=== PATIENT | male | born 1965 ===

== ENCOUNTER 2017-06-04 01:48 | Emergency (ER) | payer MEDICAID ==
[2017-06-04 01:49] VITALS: BMI 21.5
[2017-06-04 02:08] VITALS: O2SAT 97
--- NOTE | 2017-06-04 02:26 | C.PDOC ---
History Of Present Illness Patient presents to the ER with a complaint of intermittent chest pain after going to the mall at 13:00 today. Patient states the pain worsened tonight which prompted visit. Patient received 4 baby aspirin enroute with some relief but is still complaining of dull aching left shoulder discomfort. Denies nausea , vomiting, fever, or chills. Time Seen by Provider: 06/04/17 02:26 Chief Complaint (Nursing): Chest Pain History Per: Patient History/Exam Limitations: no limitations Onset/Duration Of Symptoms: Hrs, Intermittent Episodes Current Symptoms Are (Timing): Still Present Severity: Moderate Pain Scale Rating Of: 4 Quality: Dull, Aching Associated Symptoms: denies: Nausea, Dyspnea, Diaphoresis, Syncope Modifying Factors: None Exacerbating Factors: None Recent travel outside of the [place]: No Additional History Per: Family Past Medical History Reviewed: Historical Data, Nursing Documentation, Vital Signs Vital Signs: Last Vital Signs Temp 98.1 F 06/04/17 01:58 Pulse 97 H 06/04/17 01:58 Resp 20 06/04/17 01:58 BP 147/93 H 06/04/17 01:58 Pulse Ox 97 06/04/17 02:53 - Medical History PMH: Arthritis, CVA, Gastritis, HTN, Hypercholesterolemia, Hyperlipidemia, Migraine, TIA (x2), Chronic Pain Surgical History: Hernia Repair Family History: States: No Known Family Hx - Social History Hx Tobacco Use: No Hx Alcohol Use: No Hx Substance Use: No - Immunization History Hx Tetanus Toxoid Vaccination: Yes Hx Influenza Vaccination: Yes Hx Pneumococcal Vaccination: Yes Review Of Systems Constitutional: Negative for: Fever, Chills Eyes: Negative for: Vision Change ENT: Negative for: Throat Pain Cardiovascular: Positive for: Chest Pain Respiratory: Negative for: Shortness of Breath Gastrointestinal: Negative for: Nausea, Vomiting Genitourinary: Negative for: Dysuria Musculoskeletal: Positive for: Shoulder Pain Skin: Negative for: Rash Neurological: Negative for: Weakness Psych: Negative for: Anxiety Physical Exam - Physical Exam Appears: Non-toxic Skin: Warm, Dry Head: Normacephalic Eye(s): bilateral: Normal Inspection Oral Mucosa: Moist Neck: Supple Chest: Symmetrical, No Tenderness Cardiovascular: Rhythm Regular Respiratory: No Rales, No Rhonchi, No Wheezing Gastrointestinal/Abdominal: Soft, No Tenderness, Distention, Other (obese) Back: Normal Inspection Extremity: Pedal Edema (Pitting) Extremity: Bilateral: Atraumatic Pulses: Left Dorsalis Pedis: Normal, Right Dorsalis Pedis: Normal Neurological/Psych: Oriented x3 Gait: Steady ED Course And Treatment - Laboratory Results Result Diagrams: 06/04/17 03:22 18 03:31 ECG: Interpreted By Me, Viewed By Me ECG Rhythm: Sinus Rhythm (87), Nonspecific Changes O2 Sat by Pulse Oximetry: 97 Pulse Ox Interpretation: Normal - Radiology CXR: Interpreted by Me, Viewed By Me Progress Note: EKG, CXR, blood work, and urinalysis ordered. Disposition Discussed With Dr.: Toni Huang Comment: accetped the pt on his service and took over the care at 4AM Doctor Will See Patient In The: Hospital Counseled Patient/Family Regarding: Studies Performed, Diagnosis - Disposition Disposition: HOSPITALIZED Disposition Time: 02:26 Condition: FAIR Forms: [facility] (Vietnamese) - POA Present On Arrival: None - Clinical Impression Clinical Impression: Chest pain - Scribe Statement The provider has reviewed the documentation as recorded by the Scribe Zurdo Quiñonez All medical record entries made by the Scribe were at my direction and personally dictated by me. I have reviewed the chart and agree that the record accurately reflects my personal performance of the history, physical exam, medical decision making, and the department course for this patient. I have also personally directed, reviewed, and agree with the discharge instructions and disposition. Decision To Admit - Pt Status Changed To: Hospital Disposition Of: Inpatient - Admit Certification Admit to Inpatient:: After my assessment, the patient will require hospitalization for at least two midnights. This is because of the severity of symptoms shown, intensity of services needed, and/or the medical risk in this patient being treated as an outpatient. - InPatient: Physician Admission Certification: I certify that this patient requires 2 or more midnights of care for the following reason:: After my assessment, the patient will require hospitalization for at least two midnights. This is because of the severity of symptoms shown, intensity of services needed, and/or the medical risk in this patient being treated as an outpatient. - . Bed Request Type: Telemetry Admitting Physician: Tnoi Huang Patient Diagnosis: Chest pain
[2017-06-04] MEDS ORDERED: Morphine 4 MG/ML VIAL IV ONE (03:16)
[2017-06-04 03:25] LABS: BASO % 0.5 % (0.0-2.0); EOS # 0.2 K/uL (0.0-0.7); EOS % 2.6 % (0.0-4.0); HEMOGLOBIN 13.2 g/dL (12.0-18.0); LYMPH # 1.8 K/uL (1.0-4.3); LYMPH % 29.3 % (20.0-40.0); MEAN CELL VOLUME 89.4 fL (80.0-94.0); MEAN CORPUSCULAR HEMOGLOBIN 29.9 pg (27.0-31.0); MEAN CORPUSCULAR HGB CONC 33.4 g/dL (33.0-37.0); MEAN PLATELET VOLUME 9.6 fL (7.2-11.7); MONO # 0.5 K/uL (0.0-0.8); MONO % 8.7 % (0.0-10.0); NEUT # 3.6 K/uL (1.8-7.0); NEUT % 58.9 % (50.0-75.0); RBC 4.43 Mil/uL (4.40-5.90); RED CELL DISTRIBUTION WIDTH 14.8 % (11.5-14.5); WHITE BLOOD COUNT 6.1 K/uL (4.8-10.8)
[2017-06-04 03:39] LABS: PROTHROMBIN TIME 10.9 SECONDS (9.7-12.2)
[2017-06-04 03:41] LABS: ALB/GLOB RATIO 1.1 (1.0-2.1); ALBUMIN 3.5 g/dL (3.5-5.0); ALT/SGPT 35 U/L (21-72); AST/SGOT 29 U/L (17-59); BLOOD UREA NITROGEN 19 mg/dL (9-20); CALCIUM 8.7 mg/dl (8.6-10.4); GFR AFRICAN-AMERICAN > 60; GFR NON-AFRICAN AMERICAN > 60
[2017-06-04 03:53] LABS: B-TYPE NATRIURETIC PEPTIDE 70.6 pg/mL (0-900)
[2017-06-04 04:06] VITALS: PULSE 84; RESP 15; TEMP 97.8
[2017-06-04 04:17] VITALS: BP 127/79
[2017-06-04] MEDS ORDERED: Home Med 1 UNIT (Naproxen [Naprosyn] 500 MG) PO PRN (04:17)
--- NOTE | 2017-06-04 07:37 | RAD ---
Chest x-ray single frontal view History: Chest pain. Comparison: 02/28/2016 Findings: Elevated left hemidiaphragm with prominent gastric bubble underneath the left hemidiaphragm. Mild venous congestion. Patchy increased markings in the right infrahilar region which may represent mild atelectasis and or subtle infiltrate. Clinical correlation. Enlarged ectatic aorta. Cardiomegaly. Upper lobe granulomatous changes. Degenerative changes in the spine and shoulders. Impression: Elevated left hemidiaphragm with prominent gastric bubble underneath the left hemidiaphragm. Mild venous congestion. Patchy increased markings in the right infrahilar region which may represent mild atelectasis and or subtle infiltrate. Clinical correlation. Enlarged ectatic aorta. Cardiomegaly. Upper lobe granulomatous changes.
--- NOTE | 2017-06-06 23:05 | CARD ---
APPROVED REPORT EKG Measurement Heart [id number] <Conclusion> Normal sinus rhythm Normal ECG
== END 2017-06-04 04:26 | disposition left against medical advice (07) ==
LOC: C.ER 01:48
DX: R07.9 Chest pain, unspecified (principal); I10 Essential (primary) hypertension; E78.00 Pure hypercholesterolemia, unspecified; E78.5 Hyperlipidemia, unspecified
CPT/HCPCS: 71045; 80053; 83880; 84484; 85025; 85610; 85730; 93005; 96374; 99285; J2270

== ENCOUNTER 2018-05-18 11:58 | Inpatient (IN) | payer MEDICAID ==
[2018-05-18 12:10] VITALS: BMI 34.9
--- NOTE | 2018-05-18 13:22 | CP.PCM.PN ---
Subjective - Date & Time of Evaluation Date of Evaluation: 05/18/18 Time of Evaluation: 13:22 - Subjective Subjective: transfered from [facility] for STRETCH BOX TENDER shunt consult note on prior chart for OR tomorrow Objective - Vital Signs/Intake and Output Vital Signs (last 24 hours): Temp Pulse Resp BP Pulse Ox 98.4 F 79 18 121/78 97 05/18/18 12:12 05/18/18 12:12 05/18/18 12:12 05/18/18 12:12 05/18/18 12:12 - Medications Medications: Current Medications Acetaminophen (Tylenol 325mg Tab) 650 mg PO Q6 PRN PRN Reason: Pain, moderate (4-7) Rosuvastatin Calcium (Crestor) 5 mg PO HS BARRIE Topiramate (Topamax) 25 mg PO DAILY [facility]RIE
[2018-05-18] MEDS ORDERED: Apap-Butalbital-Caffeine 325-50-40mg Tab PO PRN (14:15)
[2018-05-18] MEDS: acetaZOLAMIDE 500 mg SR Cap PO SCH (17:21)
--- NOTE | 2018-05-19 01:12 | HP ---
HISTORY OF PRESENT ILLNESS: This is a 52-year-old male with history of hypertension, hypercholesterolemia, traumatic brain injury with hydrocephalus, status post HOUSE MOVER shunt, was transferred from [facility] to [facility] for revision of the HOUSE MOVER shunt due to severe symptomatic hydrocephalus with ataxic gait and dizziness. The patient was evaluated in [facility] by Dr. Ivory, Neurosurgery and he had an MRI done that showed severe hydrocephalus that did not change for few months. The patient had cardiac catheterization done by Dr. Polanco during the last year that did not show any coronary artery disease. No symptoms of chest pain, shortness of breath or any cardiopulmonary decompensation. REVIEW OF SYSTEMS: Other review of system is negative except for dizziness and disequilibrium. ALLERGIES: NO KNOWN ALLERGY. MEDICATIONS: Reviewed as per MAR and ordered. SOCIAL HISTORY: Denied history of smoking, EtOH or substance abuse. FAMILY HISTORY: Not contributory. PAST MEDICAL HISTORY: As above. PHYSICAL EXAMINATION: VITAL SIGNS: Blood pressure is 105/70, temperature 99.2, respiratory rate 20 and pulse 81. HEENT: Pupils equal, reactive to light. Normal-appearing mucosa of the conjunctivae, oropharynx and nasal membrane mucosa. NECK: Supple. No JVD. No carotid bruit. No lymph node. No thyromegaly. CHEST AND LUNGS: Bilateral symmetrical expansion. Good air exchange. No rales, no rhonchi. CARDIOVASCULAR SYSTEM: PMI not localized. S1, S2. No additional sounds. ABDOMEN: Normoactive bowel sounds. No tenderness. No organomegaly. No masses. EXTREMITIES: No cyanosis, no clubbing, no edema. WEEDER: Alert, awake, oriented x2, and the patient has ataxic gait. Motor and sensory are intact. ASSESSMENT: 1. Severe symptomatic hydrocephalus. 2. Status post traumatic brain injury. PLAN: Follow neurosurgical recommendations. The patient is cleared for neurosurgery by Cardiology, Dr. Polanco and the patient is scheduled for surgery on 05/19/2018. Edu Thompson MD
[2018-05-19] MEDS ORDERED: Bacitracin 500 Units/gm Oint Foilpak UD ONE (07:21)
[2018-05-19] MEDS ORDERED: cefTRIAXone 1 gm 0 GM/0 ML BAG IVPB ONE (07:22)
[2018-05-19] MEDS ORDERED: Lidocaine/Epinephrine 1% 1:100000 10 ML IJ ONE (07:22)
[2018-05-19] MEDS ORDERED: Absorbable Gelatin Sponge Size 100 ONE (07:22)
[2018-05-19] MEDS ORDERED: Thrombin Topical 20,000 Intl Units Spray Kit TOP ONE (07:23)
[2018-05-19] MEDS ORDERED: Bacitracin 50,000 UNIT in Sodium Chloride 0.9% Irrig 1,000 ML IR SCH (07:30)
--- NOTE | 2018-05-19 07:52 | CP.PCM.CON ---
History of Present Illness - History of Present Illness History of Present Illness: I was asked to see patient by Dr Thompson Patient seen 05/19/18 [id number] Patient is a 52 year old male with HTN who presents for NATURAL GAS ENGINEER shunt revision. The patient has previously been to [facility] for headache, and was transferred for surgery. Previous cardiac cath was negative for myocardial ischemia. Review of Systems - Constitutional Constitutional: absent: As Per HPI, Anorexia, Chills, Daytime Sleepiness, Excessive Sweating, Fatigue, Fever, Frequent Falls, Headache, Increased Appetite, Lethargy, Malaise, Night Sweats, Snoring, Sleep Apnea, Weight Gain, Weight Loss, Weakness, Other - EENT Eyes: absent: As Per HPI, Blind Spots, Blurred Vision, Change in Vision, Decreased Night Vision, Diplopia, Discharge, Dry Eye, Exophthalmos, Floaters, Irritation, Itchy Eyes, Loss of Peripheral Vision, Pain, Photophobia, Requires C orrective Lenses, Sees Flashes, Spots in Vision, Tunnel Vision, Other Visual Disturbances, Loss of Vision, Other Ears: absent: As Per HPI, Decreased Hearing, Ear Discharge, Ear Pain, Tinnitus, Abnormal Hearing, Disequilibrium, Dizziness, Other - Cardiovascular Cardiovascular: absent: As Per HPI, Acrocyanosis, Chest Pain, Chest Pain at Rest, Chest Pain with Activity, Claudication, Diaphoresis, Dyspnea, Dyspnea on Exertion, Edema, Irregular Heart Rhythm, Pain Radiating to Arm/Neck/Jaw, Leg Edema, Leg Ulcers, Lightheadedness, Orthopnea, Palpitations, Paroxysmal Nocturnal Dyspnea, Pedal Edema, Radiating Pain, Rapid Heart Rate, Slow Heart Rate, Syncope, Other - Respiratory Respiratory: absent: As Per HPI, Cough, Dyspnea, Hemoptysis, Dyspnea on Exertion, Wheezing, Snoring, Stridor, Pain on Inspiration, Chest Congestion, Excessive Mucous Production, Change in Mucous Color, Pain with Coughing, Other - Gastrointestinal Gastrointestinal: absent: As Per HPI, Abdominal Pain, Belching, Bloating, Change in Bowel Habits, Change in Stool Character, Coffee Ground Emesis, Constipation, Cramping, Diarrhea, Dyspepsia, Dysphagia, Early Satiety, Excessive Flatus, Fecal Incontinence, Heartburn, Hematemesis, Hematochezia, Loose Stools, Melena, Nausea, Odynophagia, Temesmus, Vomiting, Other - Genitourinary Genitourinary: absent: As Per HPI, Change in Urinary Stream, Difficulty Urinating, Dysuria, Flank Pain, Hematuria, Pyuria, Nocturia, Urinary Incontinence, Urinary Frequency, Urinary Hesitance, Urinary Urgency, Voiding Freq/Small Amts, Freq UTI, Hx Renal/Bladder Calculi, Hx /Renal Surgery, Bladder Distension, Other - Musculoskeletal Musculoskeletal: absent: As Per HPI, Abnormal Gait, Arthralgias, Atrophy, Back Pain, Deformity, Joint Swelling, Limited Range of Motion, Loss of Height, Muscle Cramps, Muscle Weakness, Myalgias, Neck Pain, Numbness, Radiating Pain into Limb, Stiffness, Tingling, Other - Integumentary Integumentary: absent: As Per HPI, Acne, Alopecia, Bleeding Lesions, Change in Hair, Change in Nails, Change in Pigmentation, Changing Lesions, Dry Skin, Erythema, Furuncle, Hirsutism, Lesions, New Lesions, Non-Healing Lesions, Photosensitivity, Pruritus, Rash, Skin Pain, Skin Ulcer, Sores, Striae, Swelling, Unusual Bruising, Wounds, Jaundice, Other - Neurological Neurological: Headaches - Psychiatric Psychiatric: absent: As Per HPI, Abnormal Sleep Pattern, Anhedonia, Anxiety, Auditory Hallucinations, Behavioral Changes, Change in Appetite, Change in Libido, Confusion, Depression, Difficulty Concentrating, Hallucinations, Homicidal Ideation, Hopelessness, Irritability, Memory Loss, Mood Swings, Panic Attacks, Paranoia, Suicidal Ideation, Visual Hallucinations, Tactile Hallucinations, Other - Endocrine Endocrine: absent: As Per HPI, Change in Body Appearance, Change in Libido, Cold Intolorance, Deepening of Voice, Excessive Sweating, Fatigue, Flushing, Heat Intolorance, Increase in Ring/Shoe/Hat Size, Palpitations, Polydipsia, Polyphagia, Polyuria, Other - Hematologic/Lymphatic Hematologic: absent: As Per HPI, Easy Bleeding, Easy Bruising, Lymphadenopathy, Other Past Patient History - Infectious Disease Hx of Infectious Diseases: None - Past Medical History & Family History Past Medical History?: Yes - Past Social History Smoking Status: Never Smoked - CARDIAC Hx Hypercholesterolemia: Yes Hx Hypertension: Yes - PULMONARY Other/Comment: Takes medicine for pain in the lung, does not know name of medication and why. - NEUROLOGICAL Hx Migraine: Yes Hx Transient Ischemic Attacks (TIA): Yes (x2) - HEENT Hx HEENT Problems: No - RENAL Hx Chronic Kidney Disease: No - ENDOCRINE/METABOLIC Hx Endocrine Disorders: No - HEMATOLOGICAL/ONCOLOGICAL Hx Human Immunodeficiency Virus (HIV): No - INTEGUMENTARY Hx Dermatological Problems: No - MUSCULOSKELETAL/RHEUMATOLOGICAL Hx Arthritis: Yes Hx Falls: Yes - GASTROINTESTINAL Hx Gastritis: Yes - GENITOURINARY/GYNECOLOGICAL Hx Genitourinary Disorders: No - PSYCHIATRIC Hx Psychophysiologic Disorder: No Hx Substance Use: No - SURGICAL HISTORY Hx Herniorrhaphy: Yes (Lt) Other/Comment: Ventricular shunt. Patient states he never had cataracts nor surgery for it. - ANESTHESIA Hx Anesthesia: Yes Hx Anesthesia Reactions: No Hx Malignant Hyperthermia: No Meds Home Medications: Home Medication List Medication Instructions Recorded Confirmed Type Acetaminophen [Tylenol 325mg tab] 650 mg PO Q6 PRN tab 05/21/18 Rx Cephalexin [Keflex] 250 mg PO Q8 #15 capsule 05/21/18 Rx Allergies/Adverse Reactions: Allergies Allergy/AdvReac Type Severity Reaction Status Date / Time No Known Allergies Allergy Verified 01/27/18 21:16 - Medications Medications: Current Medications Acetaminophen (Tylenol 325mg Tab) 650 mg PO Q6 PRN PRN Reason: Pain, moderate (4-7) Acetaminophen/Butalbital/Caffeine (Fioricet) 1 tab PO Q8 PRN PRN Reason: headache Last Admin: 05/19/18 02:26 Dose: 1 tab Acetazolamide (Diamox Sequels 500 Mg Sr Cap) 500 mg PO BID BARRIE Last Admin: 05/18/18 17:21 Dose: 500 mg Furosemide (Lasix) 40 mg PO DAILY [facility] Bacitracin 50,000 unit/ Sodium (Chloride) 1,000 mls @ 1,000 mls/hr IR .Q1H BARRIE; Protocol Stop: 05/19/18 08:29 Lisinopril (Zestril) 20 mg PO DAILY [facility] Meclizine HCl (Antivert) 25 mg PO Q8 PRN PRN Reason: Dizziness Rosuvastatin Calcium (Crestor) 5 mg PO HS BARRIE Last Admin: 05/18/18 21:16 Dose: 5 mg Topiramate (Topamax) 25 mg PO DAILY [facility] Physical Exam - Constitutional Appears: Non-toxic - Head Exam Head Exam: NORMAL INSPECTION - Eye Exam Eye Exam: Normal appearance - ENT Exam ENT Exam: Mucous Membranes Moist - Neck Exam Neck exam: Positive for: Full Rom - Respiratory Exam Respiratory Exam: NORMAL BREATHING PATTERN - Cardiovascular Exam Cardiovascular Exam: REGULAR RHYTHM - GI/Abdominal Exam GI & Abdominal Exam: Normal Bowel Sounds - Rectal Exam Rectal Exam: Deferred - Extremities Exam Extremities exam: Negative for: pedal edema - Back Exam Back exam: NORMAL INSPECTION - Neurological Exam Neurological exam: Alert, Oriented x3 - Psychiatric Exam Psychiatric exam: Normal Affect - Skin Skin Exam: Normal Color Results - Vital Signs Recent Vital Signs: Last Vital Signs Temp 97.2 F L 05/19/18 06:48 Pulse 79 05/19/18 07:05 Resp 20 05/19/18 06:48 BP 112/68 05/19/18 06:48 Pulse Ox 95 05/19/18 06:48 - Labs Result Diagrams: 05/20/18 04:42 05/20/18 04:42 - EKG Data EKG Interpreted by: Myself EKG shows normal: Sinus rhythm Assessment & Plan (1) Hypertension Assessment and Plan: blood pressure is well controlled Status: Acute (2) Obstructed NATURAL GAS ENGINEER shunt Assessment and Plan: no cardiovascular contraindication. the patient is medicallly optimized. Status: Acute
--- NOTE | 2018-05-19 07:52 | CP.PCM.CON ---
History of Present Illness - History of Present Illness History of Present Illness: Patient seen/examined. full consult to follow. known from office practice and previous [facility] admission Patient is medically optimized for the planned SEISMIC INTERPRETER shunt surgery. Past Patient History - Infectious Disease Hx of Infectious Diseases: None - Past Medical History & Family History Past Medical History?: Yes - Past Social History Smoking Status: Never Smoked - CARDIAC Hx Hypercholesterolemia: Yes Hx Hypertension: Yes - PULMONARY Other/Comment: Takes medicine for pain in the lung, does not know name of medication and why. - NEUROLOGICAL Hx Migraine: Yes Hx Transient Ischemic Attacks (TIA): Yes (x2) - HEENT Hx HEENT Problems: No - RENAL Hx Chronic Kidney Disease: No - ENDOCRINE/METABOLIC Hx Endocrine Disorders: No - HEMATOLOGICAL/ONCOLOGICAL Hx Human Immunodeficiency Virus (HIV): No - INTEGUMENTARY Hx Dermatological Problems: No - MUSCULOSKELETAL/RHEUMATOLOGICAL Hx Arthritis: Yes Hx Falls: Yes - GASTROINTESTINAL Hx Gastritis: Yes - GENITOURINARY/GYNECOLOGICAL Hx Genitourinary Disorders: No - PSYCHIATRIC Hx Psychophysiologic Disorder: No Hx Substance Use: No - SURGICAL HISTORY Hx Herniorrhaphy: Yes (Lt) Other/Comment: Ventricular shunt. Patient states he never had cataracts nor surgery for it. - ANESTHESIA Hx Anesthesia: Yes Hx Anesthesia Reactions: No Hx Malignant Hyperthermia: No Meds Allergies/Adverse Reactions: Allergies Allergy/AdvReac Type Severity Reaction Status Date / Time No Known Allergies Allergy Verified 01/27/18 21:16 - Medications Medications: Current Medications Acetaminophen (Tylenol 325mg Tab) 650 mg PO Q6 PRN PRN Reason: Pain, moderate (4-7) Acetaminophen/Butalbital/Caffeine (Fioricet) 1 tab PO Q8 PRN PRN Reason: headache Last Admin: 05/19/18 02:26 Dose: 1 tab Acetazolamide (Diamox Sequels 500 Mg Sr Cap) 500 mg PO BID [facility]RIE Last Admin: 05/18/18 17:21 Dose: 500 mg Furosemide (Lasix) 40 mg PO DAILY [facility] Bacitracin 50,000 unit/ Sodium (Chloride) 1,000 mls @ 1,000 mls/hr IR .Q1H [facility]RIE; Protocol Stop: 05/19/18 08:29 Lisinopril (Zestril) 20 mg PO DAILY [facility] Meclizine HCl (Antivert) 25 mg PO Q8 PRN PRN Reason: Dizziness Rosuvastatin Calcium (Crestor) 5 mg PO HS BARRIE Last Admin: 05/18/18 21:16 Dose: 5 mg Topiramate (Topamax) 25 mg PO DAILY [facility] Results - Vital Signs Recent Vital Signs: Last Vital Signs Temp 97.2 F L 05/19/18 06:48 Pulse 79 05/19/18 07:05 Resp 20 05/19/18 06:48 BP 112/68 05/19/18 06:48 Pulse Ox 95 05/19/18 06:48
[2018-05-19] MEDS ORDERED: Propofol 10 mg/ml Inj (20 ML) ONE (07:54)
[2018-05-19] MEDS ORDERED: Midazolam 2 MG/2 ML VIAL ONE (07:54)
[2018-05-19] MEDS ORDERED: Lidocaine Hydrochloride 5 ML INJ ONE (08:02)
[2018-05-19] MEDS ORDERED: ceFAZolin 1 gm in NS 2 GM/200 ML BAG IVPB ONE (08:38)
[2018-05-19] MEDS ORDERED: Neostigmine 1:1000 (1 mg/ml) Inj ONE (08:50)
[2018-05-19] MEDS ORDERED: Atropine 0.4 mg/ml Inj (1 mL) ONE (08:51)
[2018-05-19] MEDS ORDERED: Potassium Ch 20mEq in D5-1/2NS 1,000 ML IV SCH (09:00)
--- NOTE | 2018-05-19 09:11 | CP.PCM.CON ---
<Markus Licea - Last Filed: 05/19/18 12:27> History of Present Illness - History of Present Illness History of Present Illness: Markus Licea DO, PGY-2: ICU Consult Note for Dr. Keira Le 52 year old with a past medical history of hypertension, migraines, dyslipidemia, and hydrocephalus with SHIFT FOREMAN shunt placement in 2002 who presented to [facility] for revision of SHIFT FOREMAN shunt after the patient was noted to have an ataxic gait and dizziness. Dr. Ivory performed the SHIFT FOREMAN shunt revision and the patient is to be monitored in the ICU with neurochecks q1h. At the time of my evaluation the patient is resting in the ICU in bed 16 and reports having a right sided headache, 8/10 in intensity, but no nausea, vomiting, or neurologic deficits. He denies fever, chills, unilateral weakness numbness, tingling, or visual changes. Otherwise 12 point ROS is negative. PMH: hydrocephalus, hypertension, dyslipidemia PSH: left leg surgery at the age of 6, SHIFT FOREMAN shunt placement s/p revision Allergies: denies Social: Denies alcohol, tobacco, or illicit drug use PMD: Dr. Thompson Review of Systems - Review of Systems All systems: reviewed and no additional remarkable complaints except (except as per HPI) Past Patient History - Infectious Disease Hx of Infectious Diseases: None - Past Medical History & Family History Past Medical History?: Yes - Past Social History Smoking Status: Never Smoked - CARDIAC Hx Hypercholesterolemia: Yes Hx Hypertension: Yes - PULMONARY Other/Comment: Takes medicine for pain in the lung, does not know name of medication and why. - NEUROLOGICAL Hx Migraine: Yes Hx Transient Ischemic Attacks (TIA): Yes (x2) - HEENT Hx HEENT Problems: No - RENAL Hx Chronic Kidney Disease: No - ENDOCRINE/METABOLIC Hx Endocrine Disorders: No - HEMATOLOGICAL/ONCOLOGICAL Hx Human Immunodeficiency Virus (HIV): No - INTEGUMENTARY Hx Dermatological Problems: No - MUSCULOSKELETAL/RHEUMATOLOGICAL Hx Arthritis: Yes Hx Falls: Yes - GASTROINTESTINAL Hx Gastritis: Yes - GENITOURINARY/GYNECOLOGICAL Hx Genitourinary Disorders: No - PSYCHIATRIC Hx Psychophysiologic Disorder: No Hx Substance Use: No - SURGICAL HISTORY Hx Herniorrhaphy: Yes (Lt) Other/Comment: Ventricular shunt. Patient states he never had cataracts nor surgery for it. - ANESTHESIA Hx Anesthesia: Yes Hx Anesthesia Reactions: No Hx Malignant Hyperthermia: No Meds Allergies/Adverse Reactions: Allergies Allergy/AdvReac Type Severity Reaction Status Date / Time No Known Allergies Allergy Verified 01/27/18 21:16 - Medications Medications: Current Medications Acetaminophen (Tylenol 325mg Tab) 650 mg PO Q6 PRN PRN Reason: Pain, moderate (4-7) Acetaminophen/Butalbital/Caffeine (Fioricet) 1 tab PO Q8 PRN PRN Reason: headache Last Admin: 05/19/18 02:26 Dose: 1 tab Acetazolamide (Diamox Sequels 500 Mg Sr Cap) 500 mg PO BID [facility] Last Admin: 05/18/18 17:21 Dose: 500 mg Furosemide (Lasix) 40 mg PO DAILY [facility] Potassium Chloride/Dextrose/Sod Cl (Potassium Chl 20 Meq In D5-1/2ns) 1,000 mls @ 80 mls/hr IV .[id number] [facility] Lisinopril (Zestril) 20 mg PO DAILY [facility] Meclizine HCl (Antivert) 25 mg PO Q8 PRN PRN Reason: Dizziness Oxycodone/Acetaminophen (Percocet 5/325 Mg Tab) 1 tab PO Q4H PRN PRN Reason: Pain, Mild (1-3) Stop: 05/22/18 08:56 Rosuvastatin Calcium (Crestor) 5 mg PO HS [facility] Last Admin: 05/18/18 21:16 Dose: 5 mg Topiramate (Topamax) 25 mg PO DAILY [facility] Physical Exam - Constitutional Appears: Well, Non-toxic, No Acute Distress - Head Exam Additional comments: surgical dressing placed over the left posterior calvarium - Eye Exam Eye Exam: EOMI, Normal appearance - ENT Exam ENT Exam: Mucous Membranes Moist - Neck Exam Neck exam: Positive for: Normal Inspection - Respiratory Exam Respiratory Exam: Clear to Auscultation Bilateral, NORMAL BREATHING PATTERN. absent: Accessory Muscle Use - Cardiovascular Exam Cardiovascular Exam: RRR, +S1, +S2 - GI/Abdominal Exam GI & Abdominal Exam: Normal Bowel Sounds, Soft - Extremities Exam Extremities exam: Positive for: normal inspection. Negative for: calf tenderness - Back Exam Back exam: NORMAL INSPECTION. absent: CVA tenderness (L), CVA tenderness (R) - Neurological Exam Neurological exam: Alert, CN II-XII Intact, Oriented x3 - Psychiatric Exam Psychiatric exam: Normal Affect, Normal Mood - Skin Skin Exam: Dry, Intact, Normal Color, Warm Results - Vital Signs Recent Vital Signs: Last Vital Signs Temp 97.6 F 05/19/18 07:30 Pulse 92 H 05/19/18 07:30 Resp 20 05/19/18 07:30 BP 113/71 05/19/18 07:30 Pulse Ox 94 L 05/19/18 07:30 Assessment & Plan - Assessment and Plan (Free Text) Assessment: 52 year old with a past medical history of hypertension, migraines, dyslipidemia, and hydrocephalus with SHIFT FOREMAN shunt placement in 2002 who presented to [facility] for revision of SHIFT FOREMAN shunt after the patient was noted to have an ataxic gait and dizziness. The patient is s/p SHIFT FOREMAN shunt revision and the patient is to be monitored in the ICU with neurochecks q1h. We will continue his home medications as is. Percocet 5/325 q4h PRN for pain. Topamax for migraine prevention, Fiorecet as needed. Diamox for hydrocephalus. Rosuvastatin for his dyslipidemia. The patient will be OOB as tolerated. We will monitor him closely in the ICU. Case was reviewed and discussed with attending physician, Dr. Espinosa/Dr. Keira Le <Keira Le M - Last Filed: 05/19/18 17:23> Meds - Medications Medications: Current Medications Acetaminophen (Tylenol 325mg Tab) 650 mg PO Q6 PRN PRN Reason: Pain, moderate (4-7) Acetaminophen/Butalbital/Caffeine (Fioricet) 1 tab PO Q8 PRN PRN Reason: headache Last Admin: 05/19/18 02:26 Dose: 1 tab Lisinopril (Zestril) 20 mg PO DAILY [facility] Last Admin: 05/19/18 11:30 Dose: 20 mg Oxycodone/Acetaminophen (Percocet 5/325 Mg Tab) 1 tab PO Q4H PRN PRN Reason: Pain, Mild (1-3) Stop: 05/22/18 08:56 Last Admin: 05/19/18 15:57 Dose: 1 tab Rosuvastatin Calcium (Crestor) 5 mg PO HS [facility] Last Admin: 05/18/18 21:16 Dose: 5 mg Topiramate (Topamax) 25 mg PO DAILY [facility] Last Admin: 05/19/18 11:27 Dose: 25 mg Results - Vital Signs Recent Vital Signs: Last Vital Signs Temp 98.7 F 05/19/18 16:00 Pulse 81 05/19/18 16:00 Resp 14 05/19/18 16:00 BP 136/71 05/19/18 15:52 Pulse Ox 97 05/19/18 16:00 - Labs Result Diagrams: 05/19/18 14:08 05/19/18 14:08 Labs: Laboratory Results - last 24 hr 05/19/18 05/19/18 05/19/18 12:12 14:08 14:08 WBC 15.0 H D RBC 5.14 Hgb 15.0 Hct 46.8 MCV 91.1 MCH 29.3 MCHC 32.1 L RDW 13.8 Plt Count 173 MPV 9.1 Neut % (Auto) 86.3 H Lymph % (Auto) 5.6 L [place] % (Auto) 7.7 Eos % (Auto) 0.1 Baso % (Auto) 0.3 Neut # (Auto) 12.9 H Lymph # (Auto) 0.8 L [place] # (Auto) 1.2 H Eos # (Auto) 0.0 Baso # (Auto) 0.0 Neutrophils % (Manual) 89 H Lymphocytes % (Manual) 3 L Monocytes % (Manual) 8 Platelet Estimate Normal RBC Morphology Normal Sodium 132 Potassium 4.6 Chloride 101 Carbon Dioxide 23 Anion Gap 13 BUN 25 H Creatinine 1.0 Est GFR ( Amer) > 60 Est GFR (Non-Af Amer) > 60 Random Glucose 124 H D Lactic Acid Calcium 8.3 L Phosphorus 3.6 Magnesium 2.1 Total Bilirubin 0.4 AST 29 ALT 26 Alkaline Phosphatase 84 NT-Pro-B Natriuret Pep 22.6 Total Protein 7.8 Albumin 4.3 Globulin 3.5 Albumin/Globulin Ratio 1.2 Fluid Type Spinal fluid CSF Volume 1 CSF Appearance Clear/colorless CSF WBC 0.0 CSF RBC 9.0 H CSF Total Cell Counted TEST NOT PERFORMED CSF Monos/Macrophages 0 CSF Comment TEST NOT PERFORMED 05/19/18 14:10 WBC RBC Hgb Hct MCV MCH MCHC RDW Plt Count MPV Neut % (Auto) Lymph % (Auto) [place] % (Auto) Eos % (Auto) Baso % (Auto) Neut # (Auto) Lymph # (Auto) [place] # (Auto) Eos # (Auto) Baso # (Auto) Neutrophils % (Manual) Lymphocytes % (Manual) Monocytes % (Manual) Platelet Estimate RBC Morphology Sodium Potassium Chloride Carbon Dioxide Anion Gap BUN Creatinine Est GFR ( Amer) Est GFR (Non-Af Amer) Random Glucose Lactic Acid 1.3 Calcium Phosphorus Magnesium Total Bilirubin AST ALT Alkaline Phosphatase NT-Pro-B Natriuret Pep Total Protein Albumin Globulin Albumin/Globulin Ratio Fluid Type CSF Volume CSF Appearance CSF WBC CSF RBC CSF Total Cell Counted CSF Monos/Macrophages CSF Comment Assessment & Plan - Assessment and Plan (Free Text) Plan: Patient seen and examined at bedside. Patient has no c/o dizziness, denies any blurry vision -vitals remain stable -d/c IVF and lasix -continue topramax -wound site clean, intact -activity as tolerated -continue to monitor - Date & Time Date: 05/19/18 Time: 17:23
[2018-05-19] MEDS ORDERED: Lactated Ringer's 1,000 ML IV SCH (09:30)
[2018-05-19] MEDS ORDERED: HYDROmorphone 0.5 mg/0.5 ml ISec IVP PRN (09:55)
[2018-05-19] MEDS: Oxycodone/Acetaminophen 5/325 mg Tab PO PRN ×3 (11:25→21:45)
[2018-05-19 12:15] LABS: FLUID TYPE SPINAL FLUID
[2018-05-19] MEDS: acetaZOLAMIDE 500 mg SR Cap PO SCH ×2 (12:19→12:20)
[2018-05-19 12:55] LABS: CSF APPEARANCE CLEAR/COLORLESS (CLEAR); CSF MONO/MACROPHAGE 0 % (0-0); CSF VOLUME 1 mL (0-1)
[2018-05-19 14:16] LABS: BASO % 0.3 % (0.0-2.0); EOS % 0.1 % (0.0-4.0); LYMPH # 0.8 K/uL (1.0-4.3); LYMPH % 5.6 % (20.0-40.0); MEAN CELL VOLUME 91.1 fL (80.0-94.0); MEAN CORPUSCULAR HEMOGLOBIN 29.3 pg (27.0-31.0); MEAN CORPUSCULAR HGB CONC 32.1 g/dL (33.0-37.0); MEAN PLATELET VOLUME 9.1 fL (7.2-11.7); MONO # 1.2 K/uL (0.0-0.8); MONO % 7.7 % (0.0-10.0); NEUT # 12.9 K/uL (1.8-7.0); NEUT % 86.3 % (50.0-75.0); NRBC % 0.1 % (0.0-2.0); PLATELET COUNT 173 K/uL (130-400); RBC 5.14 Mil/uL (4.40-5.90); RED CELL DISTRIBUTION WIDTH 13.8 % (11.5-14.5)
[2018-05-19 14:26] LABS: ALB/GLOB RATIO 1.2 (1.0-2.1); ALBUMIN 4.3 g/dL (3.5-5.0); BLOOD UREA NITROGEN 25 mg/dL (9-20); CALCIUM 8.3 mg/dl (8.6-10.4); GFR NON-AFRICAN AMERICAN > 60
[2018-05-19 14:34] LABS: B-TYPE NATRIURETIC PEPTIDE 22.6 pg/mL (0-900)
--- NOTE | 2018-05-19 14:36 | RAD ---
Date of service: 05/19/2018 HISTORY: Evaluate lungs COMPARISON: Comparison made with chest radiograph 06/04/2018 and CTA of the chest 11/22/14 FINDINGS: LUNGS: Poor inspiration with low lung volumes, crowded bronchovascular markings and bibasilar atelectasis. There is more significant elevation left hemidiaphragm likely due to eventration unchanged from prior study. PLEURA: No significant pleural effusion identified, no pneumothorax apparent. CARDIOVASCULAR: No aortic atherosclerotic calcification present. Heart size is difficult to assess due to elevation left hemidiaphragm as well as poor inspiration OSSEOUS STRUCTURES: No significant abnormalities. VISUALIZED UPPER ABDOMEN: Tubing is normal. OTHER FINDINGS: Tubing is seen overlying the right aspect of the neck and right hemithorax extending into the over the right abdomen possibly representing a JOB SETTER shunt tube. IMPRESSION: Poor inspiration with low lung volumes, crowded bronchovascular markings and bibasilar atelectasis. There is more significant elevation left hemidiaphragm likely due to eventration unchanged from prior study.
[2018-05-19 14:45] LABS: ALT/SGPT 26 U/L (21-72); AST/SGOT 29 U/L (17-59)
[2018-05-19 15:01] LABS: LYMPHOCYTE 3 % (20-40); MONOCYTE 8 % (0-10); NEUTROPHIL 89 % (50-75); TOTAL CELLS COUNTED 100
[2018-05-19 15:02] LABS: PLATELET ESTIMATE NORMAL (NORMAL)
--- NOTE | 2018-05-19 18:01 | CP.PCM.CON ---
History of Present Illness - History of Present Illness History of Present Illness: 52 year old male with history of HTN, hypercholesterolemia CVA, LUDLOW MACHINE OPERATOR shunt who has dizziness. Symptoms have been rapidly progressive and associated with headache. He presented to [facility] with an episode of chest pain. underwent shunt revision today ID consulted for post op fever cultures pending Review of Systems - Constitutional Constitutional: absent: As Per HPI, Anorexia, Chills, Daytime Sleepiness, Excessive Sweating, Fatigue, Fever, Frequent Falls, Headache, Increased Appetite, Lethargy, Malaise, Night Sweats, Snoring, Sleep Apnea, Weight Gain, Weight Loss, Weakness, Other - EENT Eyes: absent: As Per HPI, Blind Spots, Blurred Vision, Change in Vision, Decreased Night Vision, Diplopia, Discharge, Dry Eye, Exophthalmos, Floaters, Irritation, Itchy Eyes, Loss of Peripheral Vision, Pain, Photophobia, Requires Corrective Lenses, Sees Flashes, Spots in Vision, Tunnel Vision, Other Visual Disturbances, Loss of Vision, Other Nose/Mouth/Throat: absent: As Per HPI, Epistaxis, Nasal Congestion, Nasal Discharge, Nasal Obstruction, Nasal Trauma, Nose Pain, Post Nasal Drip, Sinus Pain, Sinus Pressure, Bleeding Gums, Change in Voice, Dental Pain, Dry Mouth, Dysphagia, Halitosis, Hoarsness, Lip Swelling, Mouth Lesions, Mouth Pain, Odynophagia, Sore Throat, Throat Swelling, Tongue Swelling, Facial Pain, Neck Pain, Neck Mass, Other - Cardiovascular Cardiovascular: absent: As Per HPI, Acrocyanosis, Chest Pain, Chest Pain at Rest, Chest Pain with Activity, Claudication, Diaphoresis, Dyspnea, Dyspnea on Exertion, Edema, Irregular Heart Rhythm, Pain Radiating to Arm/Neck/Jaw, Leg Edema, Leg Ulcers, Lightheadedness, Orthopnea, Palpitations, Paroxysmal Nocturnal Dyspnea, Pedal Edema, Radiating Pain, Rapid Heart Rate, Slow Heart Rate, Syncope, Other - Respiratory Respiratory: absent: As Per HPI, Cough, Dyspnea, Hemoptysis, Dyspnea on Exertion, Wheezing, Snoring, Stridor, Pain on Inspiration, Chest Congestion, Excessive Mucous Production, Change in Mucous Color, Pain with Coughing, Other - Gastrointestinal Gastrointestinal: absent: As Per HPI, Abdominal Pain, Belching, Bloating, Change in Bowel Habits, Change in Stool Character, Coffee Ground Emesis, Constipation, Cramping, Diarrhea, Dyspepsia, Dysphagia, Early Satiety, Excessive Flatus, Fecal Incontinence, Heartburn, Hematemesis, Hematochezia, Loose Stools, Melena, Nausea, Odynophagia, Temesmus, Vomiting, Other - Genitourinary Genitourinary: absent: As Per HPI, Change in Urinary Stream, Difficulty Urinating, Dysuria, Flank Pain, Hematuria, Pyuria, Nocturia, Urinary Incontinence, Urinary Frequency, Urinary Hesitance, Urinary Urgency, Voiding Freq/Small Amts, Freq UTI, Hx Renal/Bladder Calculi, Hx /Renal Surgery, Bladder Distension, Other - Musculoskeletal Musculoskeletal: absent: As Per HPI, Abnormal Gait, Arthralgias, Atrophy, Back Pain, Deformity, Joint Swelling, Limited Range of Motion, Loss of Height, Muscle Cramps, Muscle Weakness, Myalgias, Neck Pain, Numbness, Radiating Pain into Limb, Stiffness, Tingling, Other - Integumentary Integumentary: absent: As Per HPI, Acne, Alopecia, Bleeding Lesions, Change in Hair, Change in Nails, Change in Pigmentation, Changing Lesions, Dry Skin, Erythema, Furuncle, Hirsutism, Lesions, New Lesions, Non-Healing Lesions, Photosensitivity, Pruritus, Rash, Skin Pain, Skin Ulcer, Sores, Striae, Swelling, Unusual Bruising, Wounds, Jaundice, Other - Neurological Neurological: Headaches, Lack of Coordination - Psychiatric Psychiatric: absent: As Per HPI, Abnormal Sleep Pattern, Anhedonia, Anxiety, Auditory Hallucinations, Behavioral Changes, Change in Appetite, Change in Libido, Confusion, Depression, Difficulty Concentrating, Hallucinations, Homicidal Ideation, Hopelessness, Irritability, Memory Loss, Mood Swings, Panic Attacks, Paranoia, Suicidal Ideation, Visual Hallucinations, Tactile Hallucinations, Other - Endocrine Endocrine: absent: As Per HPI, Change in Body Appearance, Change in Libido, Cold Intolorance, Deepening of Voice, Excessive Sweating, Fatigue, Flushing, Heat Intolorance, Increase in Ring/Shoe/Hat Size, Palpitations, Polydipsia, Polyphagia, Polyuria, Other - Hematologic/Lymphatic Hematologic: absent: As Per HPI, Easy Bleeding, Easy Bruising, Lymphadenopathy, Other Past Patient History - Infectious Disease Hx of Infectious Diseases: None - Past Medical History & Family History Past Medical History?: Yes - Past Social History Smoking Status: Never Smoked - CARDIAC Hx Hypercholesterolemia: Yes Hx Hypertension: Yes - PULMONARY Other/Comment: Takes medicine for pain in the lung, does not know name of medication and why. - NEUROLOGICAL Hx Migraine: Yes Hx Transient Ischemic Attacks (TIA): Yes (x2) - HEENT Hx HEENT Problems: No - RENAL Hx Chronic Kidney Disease: No - ENDOCRINE/METABOLIC Hx Endocrine Disorders: No - HEMATOLOGICAL/ONCOLOGICAL Hx Human Immunodeficiency Virus (HIV): No - INTEGUMENTARY Hx Dermatological Problems: No - MUSCULOSKELETAL/RHEUMATOLOGICAL Hx Arthritis: Yes Hx Falls: Yes - GASTROINTESTINAL Hx Gastritis: Yes - GENITOURINARY/GYNECOLOGICAL Hx Genitourinary Disorders: No - PSYCHIATRIC Hx Psychophysiologic Disorder: No Hx Substance Use: No - SURGICAL HISTORY Hx Herniorrhaphy: Yes (Lt) Other/Comment: Ventricular shunt. Patient states he never had cataracts nor surgery for it. - ANESTHESIA Hx Anesthesia: Yes Hx Anesthesia Reactions: No Hx Malignant Hyperthermia: No Meds Allergies/Adverse Reactions: Allergies Allergy/AdvReac Type Severity Reaction Status Date / Time No Known Allergies Allergy Verified 01/27/18 21:16 - Medications Medications: Current Medications Acetaminophen (Tylenol 325mg Tab) 650 mg PO Q6 PRN PRN Reason: Pain, moderate (4-7) Acetaminophen/Butalbital/Caffeine (Fioricet) 1 tab PO Q8 PRN PRN Reason: headache Last Admin: 05/19/18 02:26 Dose: 1 tab Lisinopril (Zestril) 20 mg PO DAILY [facility] Last Admin: 05/19/18 11:30 Dose: 20 mg Oxycodone/Acetaminophen (Percocet 5/325 Mg Tab) 1 tab PO Q4H PRN PRN Reason: Pain, Mild (1-3) Stop: 05/22/18 08:56 Last Admin: 05/19/18 15:57 Dose: 1 tab Rosuvastatin Calcium (Crestor) 5 mg PO HS [facility] Last Admin: 05/18/18 21:16 Dose: 5 mg Topiramate (Topamax) 25 mg PO DAILY [facility] Last Admin: 05/19/18 11:27 Dose: 25 mg Physical Exam - Constitutional Appears: Non-toxic, No Acute Distress, Chronically Ill - Head Exam Head Exam: absent: NORMAL INSPECTION Additional comments: dressinng over right parietal region c/d/i - Eye Exam Eye Exam: EOMI, PERRL. absent: Scleral icterus - ENT Exam ENT Exam: Mucous Membranes Dry, Normal Oropharynx - Neck Exam Neck exam: Negative for: Lymphadenopathy - Respiratory Exam Respiratory Exam: Decreased Breath Sounds, Rhonchi - Cardiovascular Exam Cardiovascular Exam: REGULAR RHYTHM - GI/Abdominal Exam GI & Abdominal Exam: Diminished Bowel Sounds, Guarding, Soft, Tenderness. absent: Rebound, Rigid - Rectal Exam Rectal Exam: Deferred - Exam Exam: NORMAL INSPECTION - Extremities Exam Extremities exam: Negative for: pedal edema - Back Exam Back exam: absent: CVA tenderness (L), CVA tenderness (R) - Neurological Exam Neurological exam: Alert, CN II-XII Intact, Oriented x3, Reflexes Normal - Psychiatric Exam Psychiatric exam: Depressed - Skin Skin Exam: Dry Results - Vital Signs Recent Vital Signs: Last Vital Signs Temp 98.7 F 05/19/18 16:00 Pulse 78 05/19/18 17:00 Resp 13 05/19/18 17:00 BP 113/67 05/19/18 16:52 Pulse Ox 95 05/19/18 17:00 - Labs Result Diagrams: 05/19/18 14:08 05/19/18 14:08 Labs: Laboratory Results - last 24 hr 05/19/18 05/19/18 05/19/18 12:12 14:08 14:08 WBC 15.0 H D RBC 5.14 Hgb 15.0 Hct 46.8 MCV 91.1 MCH 29.3 MCHC 32.1 L RDW 13.8 Plt Count 173 MPV 9.1 Neut % (Auto) 86.3 H Lymph % (Auto) 5.6 L [place] % (Auto) 7.7 Eos % (Auto) 0.1 Baso % (Auto) 0.3 Neut # (Auto) 12.9 H Lymph # (Auto) 0.8 L [place] # (Auto) 1.2 H Eos # (Auto) 0.0 Baso # (Auto) 0.0 Neutrophils % (Manual) 89 H Lymphocytes % (Manual) 3 L Monocytes % (Manual) 8 Platelet Estimate Normal RBC Morphology Normal Sodium 132 Potassium 4.6 Chloride 101 Carbon Dioxide 23 Anion Gap 13 BUN 25 H Creatinine 1.0 Est GFR ( Amer) > 60 Est GFR (Non-Af Amer) > 60 Random Glucose 124 H D Lactic Acid Calcium 8.3 L Phosphorus 3.6 Magnesium 2.1 Total Bilirubin 0.4 AST 29 ALT 26 Alkaline Phosphatase 84 NT-Pro-B Natriuret Pep 22.6 Total Protein 7.8 Albumin 4.3 Globulin 3.5 Albumin/Globulin Ratio 1.2 Fluid Type Spinal fluid CSF Volume 1 CSF Appearance Clear/colorless CSF WBC 0.0 CSF RBC 9.0 H CSF Total Cell Counted TEST NOT PERFORMED CSF Monos/Macrophages 0 CSF Comment TEST NOT PERFORMED 05/19/18 14:10 WBC RBC Hgb Hct MCV MCH MCHC RDW Plt Count MPV Neut % (Auto) Lymph % (Auto) [place] % (Auto) Eos % (Auto) Baso % (Auto) Neut # (Auto) Lymph # (Auto) [place] # (Auto) Eos # (Auto) Baso # (Auto) Neutrophils % (Manual) Lymphocytes % (Manual) Monocytes % (Manual) Platelet Estimate RBC Morphology Sodium Potassium Chloride Carbon Dioxide Anion Gap BUN Creatinine Est GFR ( Amer) Est GFR (Non-Af Amer) Random Glucose Lactic Acid 1.3 Calcium Phosphorus Magnesium Total Bilirubin AST ALT Alkaline Phosphatase NT-Pro-B Natriuret Pep Total Protein Albumin Globulin Albumin/Globulin Ratio Fluid Type CSF Volume CSF Appearance CSF WBC CSF RBC CSF Total Cell Counted CSF Monos/Macrophages CSF Comment Assessment & Plan - Assessment and Plan (Free Text) Assessment: Post op fever s/p LUDLOW MACHINE OPERATOR shunt revision septic work up done, IV antibiotics ordered empirically follow up cxr in am cultures sent incentive spirometry ordered
[2018-05-19] MEDS ORDERED: Cefepime 1 GM in Sodium Chloride 0.9% 50 ML IVPB ONE (18:06)
--- NOTE | 2018-05-19 18:22 | OP ---
PROCEDURE DATE: 05/19/2018 PREOPERATIVE DIAGNOSIS: Need for ventriculoperitoneal shunt revision. PROCEDURE CARRIED OUT: Ventriculoperitoneal shunt. SURGEON: Sander Ivory MD. PERITONEAL SURGEON: Yevgeniy Gunn Jr., MD. ANESTHESIA: General. ANESTHESIA ADMINISTERED BY: Dr. Benitez. INDICATION: A 52-year-old man, malfunctioning OBSERVER ELECTRICAL PROSPECTING shunt, needs replacement. OPERATIVE FINDINGS: Dr. Ivory will dictate the majority of the operative note. My role was to create a pocket in the low portion of the ribcage. At this point, we were able to make a dissection into the peritoneal cavity, placed a Purse String suture here and delivered the deployed OBSERVER ELECTR[employer]OSPECTING shunt tubing into the peritoneal cavity. After this had been deployed and had good flow, we then closed the wound around this. Closed the skin with subcuticular, closed with Steri-Strips. ESTIMATED BLOOD LOSS: Less than 10 mL. OPERATION CARRIED OUT: Revision of OBSERVER ELECTRICAL PROSPECTING shunt. Yevgeniy Gunn Jr., MD
[2018-05-19] MEDS ORDERED: Cefepime 1 GM in Sodium Chloride 0.9% 50 ML IVPB SCH (18:30)
--- NOTE | 2018-05-19 20:04 | PN ---
DATE: 05/19/2018 SUBJECTIVE: The patient is seen postoperatively in intensive care unit. He is not in any cardiopulmonary distress. The patient is having pain at the site of surgery. PHYSICAL EXAMINATION: VITAL SIGNS: Blood pressure 136/71, temperature 98.7, respiratory rate 14 and pulse 81. HEENT: There is surgical dressing of the head. NECK: Supple. No JVD. No carotid bruit. No lymph node. No thyromegaly. CHEST AND LUNGS: Bilateral symmetrical expansion. Good air exchange. No rales, no rhonchi. CARDIOVASCULAR SYSTEM: PMI not localized. S1, S2. No additional sounds. ABDOMEN: Normoactive bowel sounds. No tenderness, no organomegaly, no masses. EXTREMITIES: No cyanosis, no clubbing, no edema. SAMPLER FIRST: Alert, awake, oriented x2. No neurological deficits could be appreciated. ASSESSMENT: 1. Status post ventriculoperitoneal shunt for severe hydrocephalus. 2. Hypertension. 3. Hypercholesterolemia. PLAN: Follow up neurosurgical postoperative recommendations. We will resume the patient's medication gradually as he will start to take orally. Edu Thompson MD
[2018-05-20 04:45] LABS: BASO # 0.1 K/uL (0.0-0.2); BASO % 0.4 % (0.0-2.0); EOS % 0.4 % (0.0-4.0); HEMOGLOBIN 13.9 g/dL (12.0-18.0); LYMPH % 8.4 % (20.0-40.0); MEAN CELL VOLUME 91.1 fL (80.0-94.0); MEAN CORPUSCULAR HEMOGLOBIN 29.4 pg (27.0-31.0); MEAN CORPUSCULAR HGB CONC 32.3 g/dL (33.0-37.0); MEAN PLATELET VOLUME 9.3 fL (7.2-11.7); MONO # 1.2 K/uL (0.0-0.8); MONO % 10.3 % (0.0-10.0); NEUT # 9.3 K/uL (1.8-7.0); NEUT % 80.5 % (50.0-75.0); PLATELET COUNT 191 K/uL (130-400); RBC 4.71 Mil/uL (4.40-5.90); RED CELL DISTRIBUTION WIDTH 13.8 % (11.5-14.5); WHITE BLOOD COUNT 11.6 K/uL (4.8-10.8)
[2018-05-20 05:20] LABS: ALB/GLOB RATIO 1.2 (1.0-2.1); ALBUMIN 4.1 g/dL (3.5-5.0); ALT/SGPT 23 U/L (21-72); AST/SGOT 19 U/L (17-59); BLOOD UREA NITROGEN 23 mg/dL (9-20); CALCIUM 8.4 mg/dl (8.6-10.4); GFR NON-AFRICAN AMERICAN > 60
--- NOTE | 2018-05-20 06:21 | OP ---
PROCEDURE DATE: 05/19/2018 PREOPERATIVE DIAGNOSIS: Ventriculoperitoneal shunt failure with hydrocephalus. POSTOPERATIVE DIAGNOSIS: Ventriculoperitoneal shunt failure with hydrocephalus. OPERATIVE PROCEDURE: Right parietal ventriculoperitoneal shunt. SURGEON: Sander Ivory MD CO-SURGEON: Yevgeniy Gunn Jr., MD DESCRIPTION OF PROCEDURE: The patient was brought to the operating room, intubated appropriately, head turned to the left. The right parietal area was prepped and draped as well as the neck, chest, and abdomen. Dr. Gunn will detail the abdominal portion separately. After draping, the previously marked ?incision over the right parietal was instilled with lidocaine with epinephrine and incised sharply down to the pericranium, the flap was retracted back with an angled Weitlaner. The pericranium was stripped off the skull using electrocautery overlying just where the bur hole would be. A solitary bur hole was placed. The dura was cauterized, and then with a 15 jemima, the cortical surface was cauterized with a bipolar, and in a single pass, ventricular catheter was placed into the ventricle attached to the proximal port of a Medtronic programmable valve set to 2, tied with a 2-0 silk suture and a piece of extra tubing was clamped to the distal port. The shunt was then tacked with 4-0 Nurolon to the pericranium. By this time, Dr. Gunn was ready to pass the shunt passer cephalad, passed it up in one pass, and no connecting incisions were needed. The distal tubing was then passed through the shunt passer. The shunt passer was removed. The proximal end of the distal tubing was then attached to the distal port of the valve with a 2-0 silk tie. The remainder of the tubing was pulled into the abdominal incision. The shunt at this point flowed spontaneously and pumped well. Dr. Gunn then proceeded to implant the distal limb into the abdomen and the shunt continued to pump after the total distal portion was embedded into the peritoneum. At this point, the wound was irrigated. The wound was then reapproximated with 2-0 Vicryl skin staple. Sterile dressing was applied; and at this point, the patient just being awoke from anesthesia, too early to assess neurologically. All counts were correct. Specimen was spinal fluid, sent for routine studies. Blood loss was less than 50 mL. Sander Ivory MD cc: Dr. Thompson.
[2018-05-20 08:44] LABS: EOSINOPHIL 1 % (0-4); LYMPHOCYTE 6 % (20-40); MONOCYTE 5 % (0-10); NEUTROPHIL 88 % (50-75); PLATELET ESTIMATE NORMAL (NORMAL); TOTAL CELLS COUNTED 100
--- NOTE | 2018-05-20 09:59 | CP.PCM.PN ---
Subjective - Date & Time of Evaluation Date of Evaluation: 05/20/18 Time of Evaluation: 09:59 - Subjective Subjective: a a ox3 no deficits ok to d/c home Objective - Vital Signs/Intake and Output Vital Signs (last 24 hours): Temp Pulse Resp BP Pulse Ox 98.8 F 83 12 114/72 95 05/20/18 00:00 05/20/18 07:00 05/20/18 07:00 05/20/18 06:52 05/20/18 07:00 Intake and Output: 05/20/18 05/20/18 06:59 18:59 Intake Total 1026 Output Total 1100 Balance -74 - Medications Medications: Current Medications Acetaminophen (Tylenol 325mg Tab) 650 mg PO Q6 PRN PRN Reason: Pain, moderate (4-7) Acetaminophen/Butalbital/Caffeine (Fioricet) 1 tab PO Q8 PRN PRN Reason: headache Last Admin: 05/19/18 02:26 Dose: 1 tab Vancomycin HCl 1,000 mg/ (Sodium Chloride) 250 mls @ 166.6 mls/hr IVPB Q12H BARRIE; Protocol Last Admin: 05/20/18 06:13 Dose: 166.6 mls/hr Cefepime HCl 1 gm/ Dextrose 50 mls @ 100 mls/hr IVPB Q8H BARRIE; Protocol Last Admin: 05/20/18 09:53 Dose: 100 mls/hr Lisinopril (Zestril) 20 mg PO DAILY BARRIE Last Admin: 05/20/18 09:53 Dose: 20 mg Oxycodone/Acetaminophen (Percocet 5/325 Mg Tab) 1 tab PO Q4H PRN PRN Reason: Pain, Mild (1-3) Stop: 05/22/18 08:56 Last Admin: 05/19/18 21:45 Dose: 1 tab Rosuvastatin Calcium (Crestor) 5 mg PO HS [facility] Last Admin: 05/19/18 21:42 Dose: 5 mg Topiramate (Topamax) 25 mg PO DAILY [facility] Last Admin: 05/20/18 09:53 Dose: 25 mg - Labs Labs: 05/20/18 04:42 05/20/18 04:42
--- NOTE | 2018-05-20 10:00 | CP.CCUPN ---
<Markus Licea - Last Filed: 05/20/18 10:01> CCU Subjective - Physician Review Subjective (Free Text): Markus Licea DO, PGY-2: ICU Progress Note Patient was seen and examined at bedside. Patient has some headache, but no nausea or vomiting. He is tolerating his diet. He walked with PT. 05/20/18 09:57 CCU Objective - Vital Signs / Intake & Output Vital Signs (Last 4 hours): Vital Signs Pulse Resp BP Pulse Ox 05/20/18 07:00 83 12 95 05/20/18 06:52 90 17 114/72 96 05/20/18 06:00 77 12 93 L Intake and Output (Last 8hrs): Intake & Output 05/19/18 05/20/18 05/20/18 22:59 06:59 14:59 Intake Total 1436 476 Output Total 400 1100 Balance 1036 -624 Intake: Intake, IV Amount 476 476 Right Forearm 10 10 Right Upper arm 466 466 Oral 960 0 Output: Urine 400 1100 Urine, Voided 400 1100 Other: # Voids Urine, Voided 1 # Bowel Movements 0 - Physical Exam Head: Positive for: Atraumatic, Other (right posterior calvarium has dressing covering internalized ventricular shunt) Pupils: Positive for: PERRL Extroacular Muscles: Positive for: EOMI Conjunctiva: Positive for: Normal Pharnyx: Positive for: Other (uvula and tongue midline) Neck: Positive for: Normal Range of Motion Respiratory/Chest: Positive for: Clear to Auscultation. Negative for: Respiratory Distress, Accessory Muscle Use Cardiovascular: Positive for: Regular Rate and Rhythm, Normal S1, S2 Abdomen: Positive for: Normal Bowel Sounds, Other (right peritoneal drain dressing in place, clean, dry and intact). Negative for: Tenderness Upper Extremity: Positive for: Normal Inspection. Negative for: Edema Lower Extremity: Positive for: Normal Inspection. Negative for: Edema Neurological: Positive for: GCS=15, CN II-XII Intact, Speech Normal Psychiatric: Positive for: Alert, Oriented x 3, Normal Insight, Normal Concentration - Medications Active Medications: Active Medications Generic Name Dose Route Start Last Admin Trade Name Freq PRN Reason Stop Dose Admin Acetaminophen 650 mg 05/18/18 12:37 Tylenol 325mg Tab PO Q6 PRN Pain, moderate (4-7) Acetaminophen/Butalbital/Caffeine 1 tab 05/18/18 14:15 05/19/18 02:26 Fioricet PO 1 tab Q8 PRN Administration headache Vancomycin HCl 1,000 mg/ 250 mls @ 166.6 mls/hr 05/20/18 06:30 05/20/18 06:13 Sodium Chloride IVPB 166.6 mls/hr Q12H BARRIE Administration Protocol Cefepime HCl 1 gm/ Dextrose 50 mls @ 100 mls/hr 05/19/18 18:30 05/20/18 09:53 IVPB 100 mls/hr Q8H BARRIE Administration Protocol Lisinopril 20 mg 05/19/18 10:00 05/20/18 09:53 Zestril PO 20 mg DAILY BARRIE Administration Oxycodone/Acetaminophen 1 tab 05/19/18 08:55 05/19/18 21:45 Percocet 5/325 Mg Tab PO 05/22/18 08:56 1 tab Q4H PRN Administration Pain, Mild (1-3) Rosuvastatin Calcium 5 mg 05/18/18 22:00 05/19/18 21:42 Crestor PO 5 mg HS BARRIE Administration Topiramate 25 mg 05/19/18 10:00 05/20/18 09:53 Topamax PO 25 mg DAILY BARRIE Administration - Patient Studies Lab Studies: Microbiology Studies 05/19/18 12:12 Gram Stain - Final Cerebral Spinal Fluid CSF Culture - Preliminary NO GROWTH AFTER 24 HOURS Lab Studies 05/20/18 05/20/18 05/20/18 Range/Units 05:42 04:42 04:42 WBC (4.8-10.8) K/uL RBC (4.40-5.90) Mil/uL Hgb (12.0-18.0) g/dL Hct (35.0-51.0) % MCV (80.0-94.0) fL MCH (27.0-31.0) pg MCHC (33.0-37.0) g/dL RDW (11.5-14.5) % Plt Count (130-400) K/uL MPV (7.2-11.7) fL Neut % (Auto) (50.0-75.0) % Lymph % (Auto) (20.0-40.0) % Pope % (Auto) (0.0-10.0) % Eos % (Auto) (0.0-4.0) % Baso % (Auto) (0.0-2.0) % Neut # (Auto) (1.8-7.0) K/uL Lymph # (Auto) (1.0-4.3) K/uL Pope # (Auto) (0.0-0.8) K/uL Eos # (Auto) (0.0-0.7) K/uL Baso # (Auto) (0.0-0.2) K/uL Neutrophils % (Manual) (50-75) % Lymphocytes % (Manual) (20-40) % Monocytes % (Manual) (0-10) % Eosinophils % (Manual) (0-4) % Platelet Estimate (NORMAL) RBC Morphology Sodium 133 (132-148) mmol/L Potassium 4.2 (3.6-5.2) mmol/L Chloride 100 (98-107) mmol/L Carbon Dioxide 25 (22-30) mmol/L Anion Gap 11 (10-20) BUN 23 H (9-20) mg/dL Creatinine 0.9 (0.8-1.5) mg/dL Est GFR ( Amer) > 60 Est GFR (Non-Af Amer) > 60 Random Glucose 122 H (75-110) mg/dL Lactic Acid (0.7-2.1) mmol/L Calcium 8.4 L (8.6-10.4) mg/dl Phosphorus 3.0 (2.5-4.5) mg/dL Magnesium 2.1 (1.6-2.3) mg/dL Total Bilirubin 0.7 (0.2-1.3) mg/dL AST 19 (17-59) U/L ALT 23 (21-72) U/L Alkaline Phosphatase 79 (38-126) U/L NT-Pro-B Natriuret Pep (0-900) pg/mL Total Protein 7.6 (6.3-8.3) g/dL Albumin 4.1 (3.5-5.0) g/dL Globulin 3.5 (2.2-3.9) gm/dL Albumin/Globulin Ratio 1.2 (1.0-2.1) Procalcitonin 0.05 L (0.19-0.49) NG/ML Fluid Type CSF Volume (0-1) mL CSF Appearance (CLEAR) CSF WBC (0.0-5.0) /mm3 CSF RBC (0.0-0.0) /mm3 CSF Total Cell Counted CSF Monos/Macrophages (0-0) % CSF Comment Influenza Typ A,B (EIA) Negative for flu a/b (NEGATIVE) 05/20/18 05/19/18 05/19/18 Range/Units 04:42 14:10 14:08 WBC 11.6 H (4.8-10.8) K/uL RBC 4.71 (4.40-5.90) Mil/uL Hgb 13.9 (12.0-18.0) g/dL Hct 42.9 (35.0-51.0) % MCV 91.1 (80.0-94.0) fL MCH 29.4 (27.0-31.0) pg MCHC 32.3 L (33.0-37.0) g/dL RDW 13.8 (11.5-14.5) % Plt Count 191 (130-400) K/uL MPV 9.3 (7.2-11.7) fL Neut % (Auto) 80.5 H (50.0-75.0) % Lymph % (Auto) 8.4 L (20.0-40.0) % Pope % (Auto) 10.3 H (0.0-10.0) % Eos % (Auto) 0.4 (0.0-4.0) % Baso % (Auto) 0.4 (0.0-2.0) % Neut # (Auto) 9.3 H (1.8-7.0) K/uL Lymph # (Auto) 1.0 (1.0-4.3) K/uL Pope # (Auto) 1.2 H (0.0-0.8) K/uL Eos # (Auto) 0.0 (0.0-0.7) K/uL Baso # (Auto) 0.1 (0.0-0.2) K/uL Neutrophils % (Manual) 88 H (50-75) % Lymphocytes % (Manual) 6 L (20-40) % Monocytes % (Manual) 5 (0-10) % Eosinophils % (Manual) 1 (0-4) % Platelet Estimate Normal (NORMAL) RBC Morphology Normal Sodium 132 (132-148) mmol/L Potassium 4.6 (3.6-5.2) mmol/L Chloride 101 (98-107) mmol/L Carbon Dioxide 23 (22-30) mmol/L Anion Gap 13 (10-20) BUN 25 H (9-20) mg/dL Creatinine 1.0 (0.8-1.5) mg/dL Est GFR ( Amer) > 60 Est GFR (Non-Af Amer) > 60 Random Glucose 124 H D (75-110) mg/dL Lactic Acid 1.3 (0.7-2.1) mmol/L Calcium 8.3 L (8.6-10.4) mg/dl Phosphorus 3.6 (2.5-4.5) mg/dL Magnesium 2.1 (1.6-2.3) mg/dL Total Bilirubin 0.4 (0.2-1.3) mg/dL AST 29 (17-59) U/L ALT 26 (21-72) U/L Alkaline Phosphatase 84 (38-126) U/L NT-Pro-B Natriuret Pep 22.6 (0-900) pg/mL Total Protein 7.8 (6.3-8.3) g/dL Albumin 4.3 (3.5-5.0) g/dL Globulin 3.5 (2.2-3.9) gm/dL Albumin/Globulin Ratio 1.2 (1.0-2.1) Procalcitonin (0.19-0.49) NG/ML Fluid Type CSF Volume (0-1) mL CSF Appearance (CLEAR) CSF WBC (0.0-5.0) /mm3 CSF RBC (0.0-0.0) /mm3 CSF Total Cell Counted CSF Monos/Macrophages (0-0) % CSF Comment Influenza Typ A,B (EIA) (NEGATIVE) 05/19/18 05/19/18 Range/Units 14:08 12:12 WBC 15.0 H D (4.8-10.8) K/uL RBC 5.14 (4.40-5.90) Mil/uL Hgb 15.0 (12.0-18.0) g/dL Hct 46.8 (35.0-51.0) % MCV 91.1 (80.0-94.0) fL MCH 29.3 (27.0-31.0) pg MCHC 32.1 L (33.0-37.0) g/dL RDW 13.8 (11.5-14.5) % Plt Count 173 (130-400) K/uL MPV 9.1 (7.2-11.7) fL Neut % (Auto) 86.3 H (50.0-75.0) % Lymph % (Auto) 5.6 L (20.0-40.0) % Pope % (Auto) 7.7 (0.0-10.0) % Eos % (Auto) 0.1 (0.0-4.0) % Baso % (Auto) 0.3 (0.0-2.0) % Neut # (Auto) 12.9 H (1.8-7.0) K/uL Lymph # (Auto) 0.8 L (1.0-4.3) K/uL Pope # (Auto) 1.2 H (0.0-0.8) K/uL Eos # (Auto) 0.0 (0.0-0.7) K/uL Baso # (Auto) 0.0 (0.0-0.2) K/uL Neutrophils % (Manual) 89 H (50-75) % Lymphocytes % (Manual) 3 L (20-40) % Monocytes % (Manual) 8 (0-10) % Eosinophils % (Manual) (0-4) % Platelet Estimate Normal (NORMAL) RBC Morphology Normal Sodium (132-148) mmol/L Potassium (3.6-5.2) mmol/L Chloride (98-107) mmol/L Carbon Dioxide (22-30) mmol/L Anion Gap (10-20) BUN (9-20) mg/dL Creatinine (0.8-1.5) mg/dL Est GFR ( Amer) Est GFR (Non-Af Amer) Random Glucose (75-110) mg/dL Lactic Acid (0.7-2.1) mmol/L Calcium (8.6-10.4) mg/dl Phosphorus (2.5-4.5) mg/dL Magnesium (1.6-2.3) mg/dL Total Bilirubin (0.2-1.3) mg/dL AST (17-59) U/L ALT (21-72) U/L Alkaline Phosphatase (38-126) U/L NT-Pro-B Natriuret Pep (0-900) pg/mL Total Protein (6.3-8.3) g/dL Albumin (3.5-5.0) g/dL Globulin (2.2-3.9) gm/dL Albumin/Globulin Ratio (1.0-2.1) Procalcitonin (0.19-0.49) NG/ML Fluid Type Spinal fluid CSF Volume 1 (0-1) mL CSF Appearance Clear/colorless (CLEAR) CSF WBC 0.0 (0.0-5.0) /mm3 CSF RBC 9.0 H (0.0-0.0) /mm3 CSF Total Cell Counted TEST NOT PERFORMED CSF Monos/Macrophages 0 (0-0) % CSF Comment TEST NOT PERFORMED Influenza Typ A,B (EIA) (NEGATIVE) Laboratory Results - last 24 hr 05/19/18 05/19/18 05/19/18 12:12 14:08 14:08 WBC 15.0 H D RBC 5.14 Hgb 15.0 Hct 46.8 MCV 91.1 MCH 29.3 MCHC 32.1 L RDW 13.8 Plt Count 173 MPV 9.1 Neut % (Auto) 86.3 H Lymph % (Auto) 5.6 L Pope % (Auto) 7.7 Eos % (Auto) 0.1 Baso % (Auto) 0.3 Neut # (Auto) 12.9 H Lymph # (Auto) 0.8 L Pope # (Auto) 1.2 H Eos # (Auto) 0.0 Baso # (Auto) 0.0 Neutrophils % (Manual) 89 H Lymphocytes % (Manual) 3 L Monocytes % (Manual) 8 Eosinophils % (Manual) Platelet Estimate Normal RBC Morphology Normal Sodium 132 Potassium 4.6 Chloride 101 Carbon Dioxide 23 Anion Gap 13 BUN 25 H Creatinine 1.0 Est GFR ( Amer) > 60 Est GFR (Non-Af Amer) > 60 Random Glucose 124 H D Lactic Acid Calcium 8.3 L Phosphorus 3.6 Magnesium 2.1 Total Bilirubin 0.4 AST 29 ALT 26 Alkaline Phosphatase 84 NT-Pro-B Natriuret Pep 22.6 Total Protein 7.8 Albumin 4.3 Globulin 3.5 Albumin/Globulin Ratio 1.2 Procalcitonin Fluid Type Spinal fluid CSF Volume 1 CSF Appearance Clear/colorless CSF WBC 0.0 CSF RBC 9.0 H CSF Total Cell Counted TEST NOT PERFORMED CSF Monos/Macrophages 0 CSF Comment TEST NOT PERFORMED Influenza Typ A,B (EIA) 05/19/18 05/20/18 05/20/18 14:10 04:42 04:42 WBC 11.6 H RBC 4.71 Hgb 13.9 Hct 42.9 MCV 91.1 MCH 29.4 MCHC 32.3 L RDW 13.8 Plt Count 191 MPV 9.3 Neut % (Auto) 80.5 H Lymph % (Auto) 8.4 L Pope % (Auto) 10.3 H Eos % (Auto) 0.4 Baso % (Auto) 0.4 Neut # (Auto) 9.3 H Lymph # (Auto) 1.0 Pope # (Auto) 1.2 H Eos # (Auto) 0.0 Baso # (Auto) 0.1 Neutrophils % (Manual) 88 H Lymphocytes % (Manual) 6 L Monocytes % (Manual) 5 Eosinophils % (Manual) 1 Platelet Estimate Normal RBC Morphology Normal Sodium 133 Potassium 4.2 Chloride 100 Carbon Dioxide 25 Anion Gap 11 BUN 23 H Creatinine 0.9 Est GFR ( Amer) > 60 Est GFR (Non-Af Amer) > 60 Random Glucose 122 H Lactic Acid 1.3 Calcium 8.4 L Phosphorus 3.0 Magnesium 2.1 Total Bilirubin 0.7 AST 19 ALT 23 Alkaline Phosphatase 79 NT-Pro-B Natriuret Pep Total Protein 7.6 Albumin 4.1 Globulin 3.5 Albumin/Globulin Ratio 1.2 Procalcitonin Fluid Type CSF Volume CSF Appearance CSF WBC CSF RBC CSF Total Cell Counted CSF Monos/Macrophages CSF Comment Influenza Typ A,B (EIA) 05/20/18 05/20/18 04:42 05:42 WBC RBC Hgb Hct MCV MCH MCHC RDW Plt Count MPV Neut % (Auto) Lymph % (Auto) Pope % (Auto) Eos % (Auto) Baso % (Auto) Neut # (Auto) Lymph # (Auto) Pope # (Auto) Eos # (Auto) Baso # (Auto) Neutrophils % (Manual) Lymphocytes % (Manual) Monocytes % (Manual) Eosinophils % (Manual) Platelet Estimate RBC Morphology Sodium Potassium Chloride Carbon Dioxide Anion Gap BUN Creatinine Est GFR ( Amer) Est GFR (Non-Af Amer) Random Glucose Lactic Acid Calcium Phosphorus Magnesium Total Bilirubin AST ALT Alkaline Phosphatase NT-Pro-B Natriuret Pep Total Protein Albumin Globulin Albumin/Globulin Ratio Procalcitonin 0.05 L Fluid Type CSF Volume CSF Appearance CSF WBC CSF RBC CSF Total Cell Counted CSF Monos/Macrophages CSF Comment Influenza Typ A,B (EIA) Negative for flu a/b Radiology Impressions: Radiology Impressions Chest X-Ray 05/19/18 13:27 IMPRESSION: Poor inspiration with low lung volumes, crowded bronchovascular markings and bibasilar atelectasis. There is more significant elevation left hemidiaphragm likely due to eventration unchanged from prior study. Critical Care Progress Note - Ventilator Checklist Head of Bed 30 Degrees: Yes - Nutrition Nutrition: Nutrition Category Date Time Status Regular Diet [DIET] Diets 05/19/18 Dinner Active Assessment/Plan - Assessment and Plan (Free Text) Assessment: 52 year old with a past medical history of hypertension, migraines, dyslipidemia, and hydrocephalus with DISCHARGE PLANNER shunt placement in 2002 who presented to [facility] for revision of DISCHARGE PLANNER shunt after the patient was noted to have an ataxic gait and dizziness. The patient is s/p DISCHARGE PLANNER shunt revision and the patient is to be monitored in the ICU with neurochecks q1h. We will continue his home medications as is. Percocet 5/325 q4h PRN for pain. Topamax for migraine prevention, Fiorecet as needed. Diamox for hydrocephalus. Rosuvastatin for his dyslipidemia. The patient will be OOB as tolerated. We will monitor him closely in the ICU. Neurologic - s/p V/P shunt; no complications, dizziness and ataxia have resolved - Neursurgery cleared pateint for discharge - PT walked patient and he observed to have a normal gait with use of a rolling walker - Dressing change per Neurosurgery - HOB 30 degrees - Topamax for migraine prophylaxis - Perococet for Headache - Fiorecet as needed for severe headache Pulmonology - Chest X-ray from yesterday showed poor inspiration with low lung volumes, crowded bronchovascular markings and bibasilar atelectasis. There is more significant elevation left hemidiaphragm likely due to eventration unchanged from prior study. - SpO2 been greater than 94% on room air Cardiovascular Maintain MAP greater than 65 mmHG - Lisinopril 20 mg - Rosuvastatin 5 mg HS ID - Vancomycin and Cefepime empirically - procalcitonin low, patient afebrile; would recommend discontinuing antibiotics Nephrology - BUN/Cr stable - monitor urine output GI - tolerating diet - continue GI prophylaxis Disposition: OOB to chair, PT and discharge Case was reviewed and discussed with attending physician, Dr. Espinosa/Dr. Keira Le <Keira Le M - Last Filed: 05/21/18 14:22> CCU Objective - Vital Signs / Intake & Output Intake and Output (Last 8hrs): Intake & Output 05/20/18 05/21/18 05/21/18 22:59 06:59 14:59 Intake Total 500 Output Total 450 Balance 50 Intake: Intake, IV Amount 300 Right Forearm 300 Oral 200 Output: Urine 450 Urine, Voided 450 Other: # Voids Urine, Voided 2 - Patient Studies Lab Studies: Microbiology Studies 05/19/18 12:12 Gram Stain - Final Cerebral Spinal Fluid CSF Culture - Preliminary NO GROWTH AFTER 2 DAYS 05/19/18 11:50 MRSA Culture (Admit) - Final Naris MRSA NOT DETECTED Radiology Impressions: Radiology Impressions Head CT 05/21/18 12:31 IMPRESSION: New right parietal ventriculostomy catheter. Stable appearance of right frontal ventriculostomy catheter. No change in extent of dilatation of the 3rd and lateral ventricles. Critical Care Progress Note - Nutrition Nutrition: Nutrition Category Date Time Status Regular Diet [DIET] Diets 05/19/18 Dinner Active Assessment/Plan - Assessment and Plan (Free Text) Plan: PAtient seen and examined at bedside. Patient feeling better. Patient wishes to get out of bed -continue abx as per ID -Patient remains hemodynamically stable - Date & Time Date: 05/20/18 Time: 21:00
--- NOTE | 2018-05-20 14:54 | CP.PCM.CON ---
History of Present Illness - History of Present Illness History of Present Illness: 52 yr old male who has severe hydrocephalus and has [employer] REPRESENTATIVE shunt now in place. Patient is stable now. NEurology consult dictated. PLease see note for complete details. Thank you Dr. Molina Neurology Past Patient History - Infectious Disease Hx of Infectious Diseases: None - Past Medical History & Family History Past Medical History?: Yes - Past Social History Smoking Status: Never Smoked - CARDIAC Hx Hypercholesterolemia: Yes Hx Hypertension: Yes - PULMONARY Other/Comment: Takes medicine for pain in the lung, does not know name of medication and why. - NEUROLOGICAL Hx Migraine: Yes Hx Transient Ischemic Attacks (TIA): Yes (x2) - HEENT Hx HEENT Problems: No - RENAL Hx Chronic Kidney Disease: No - ENDOCRINE/METABOLIC Hx Endocrine Disorders: No - HEMATOLOGICAL/ONCOLOGICAL Hx Human Immunodeficiency Virus (HIV): No - INTEGUMENTARY Hx Dermatological Problems: No - MUSCULOSKELETAL/RHEUMATOLOGICAL Hx Arthritis: Yes - GASTROINTESTINAL Hx Gastritis: Yes - GENITOURINARY/GYNECOLOGICAL Hx Genitourinary Disorders: No - PSYCHIATRIC Hx Psychophysiologic Disorder: No Hx Substance Use: No - SURGICAL HISTORY Hx Herniorrhaphy: Yes (Lt) Other/Comment: Ventricular shunt. Patient states he never had cataracts nor surgery for it. - ANESTHESIA Hx Anesthesia: Yes Hx Anesthesia Reactions: No Hx Malignant Hyperthermia: No Meds Allergies/Adverse Reactions: Allergies Allergy/AdvReac Type Severity Reaction Status Date / Time No Known Allergies Allergy Verified 01/27/18 21:16 - Medications Medications: Current Medications Acetaminophen (Tylenol 325mg Tab) 650 mg PO Q6 PRN PRN Reason: Pain, moderate (4-7) Acetaminophen/Butalbital/Caffeine (Fioricet) 1 tab PO Q8 PRN PRN Reason: headache Last Admin: 05/19/18 02:26 Dose: 1 tab Vancomycin HCl 1,000 mg/ (Sodium Chloride) 250 mls @ 166.6 mls/hr IVPB Q12H BARRIE; Protocol Last Admin: 05/20/18 06:13 Dose: 166.6 mls/hr Cefepime HCl 1 gm/ Dextrose 50 mls @ 100 mls/hr IVPB Q8H BARRIE; Protocol Last Admin: 05/20/18 09:53 Dose: 100 mls/hr Lisinopril (Zestril) 20 mg PO DAILY [facility]RIE Last Admin: 05/20/18 09:53 Dose: 20 mg Oxycodone/Acetaminophen (Percocet 5/325 Mg Tab) 1 tab PO Q4H PRN PRN Reason: Pain, Mild (1-3) Stop: 05/22/18 08:56 Last Admin: 05/19/18 21:45 Dose: 1 tab Rosuvastatin Calcium (Crestor) 5 mg PO HS [facility] Last Admin: 05/19/18 21:42 Dose: 5 mg Topiramate (Topamax) 25 mg PO DAILY [facility] Last Admin: 05/20/18 09:53 Dose: 25 mg Results - Vital Signs Recent Vital Signs: Last Vital Signs Temp 98.8 F 05/20/18 00:00 Pulse 90 05/20/18 13:03 Resp 14 05/20/18 12:52 BP 117/63 05/20/18 12:52 Pulse Ox 96 05/20/18 12:52 - Labs Result Diagrams: 05/20/18 04:42 05/20/18 04:42 Labs: Laboratory Results - last 24 hr 05/19/18 05/20/18 05/20/18 14:08 04:42 04:42 WBC 11.6 H RBC 4.71 Hgb 13.9 Hct 42.9 MCV 91.1 MCH 29.4 MCHC 32.3 L RDW 13.8 Plt Count 191 MPV 9.3 Neut % (Auto) 80.5 H Lymph % (Auto) 8.4 L Nobles % (Auto) 10.3 H Eos % (Auto) 0.4 Baso % (Auto) 0.4 Neut # (Auto) 9.3 H Lymph # (Auto) 1.0 Nobles # (Auto) 1.2 H Eos # (Auto) 0.0 Baso # (Auto) 0.1 Neutrophils % (Manual) 89 H 88 H Lymphocytes % (Manual) 3 L 6 L Monocytes % (Manual) 8 5 Eosinophils % (Manual) 1 Platelet Estimate Normal Normal RBC Morphology Normal Normal Sodium 133 Potassium 4.2 Chloride 100 Carbon Dioxide 25 Anion Gap 11 BUN 23 H Creatinine 0.9 Est GFR ( Amer) > 60 Est GFR (Non-Af Amer) > 60 Random Glucose 122 H Calcium 8.4 L Phosphorus 3.0 Magnesium 2.1 Total Bilirubin 0.7 AST 19 ALT 23 Alkaline Phosphatase 79 Total Protein 7.6 Albumin 4.1 Globulin 3.5 Albumin/Globulin Ratio 1.2 Procalcitonin Influenza Typ A,B (EIA) 05/20/18 05/20/18 04:42 05:42 WBC RBC Hgb Hct MCV MCH MCHC RDW Plt Count MPV Neut % (Auto) Lymph % (Auto) Nobles % (Auto) Eos % (Auto) Baso % (Auto) Neut # (Auto) Lymph # (Auto) Nobles # (Auto) Eos # (Auto) Baso # (Auto) Neutrophils % (Manual) Lymphocytes % (Manual) Monocytes % (Manual) Eosinophils % (Manual) Platelet Estimate RBC Morphology Sodium Potassium Chloride Carbon Dioxide Anion Gap BUN Creatinine Est GFR ( Amer) Est GFR (Non-Af Amer) Random Glucose Calcium Phosphorus Magnesium Total Bilirubin AST ALT Alkaline Phosphatase Total Protein Albumin Globulin Albumin/Globulin Ratio Procalcitonin 0.05 L Influenza Typ A,B (EIA) Negative for flu a/b Assessment & Plan - Assessment and Plan (Free Text) Plan: 1.Repeat head ct over the weekend. 2. Neuro checks [facility]
--- NOTE | 2018-05-20 17:23 | CP.PCM.PN ---
Subjective - Date & Time of Evaluation Date of Evaluation: 05/20/18 Time of Evaluation: 09:00 - Subjective Subjective: afeb nad Objective - Vital Signs/Intake and Output Vital Signs (last 24 hours): Temp Pulse Resp BP Pulse Ox 98.8 F 90 14 117/63 96 05/20/18 00:00 05/20/18 13:03 05/20/18 12:52 05/20/18 12:52 05/20/18 12:52 Intake and Output: 05/20/18 05/20/18 06:59 18:59 Intake Total 1026 100 Output Total 1100 600 Balance -74 -500 - Medications Medications: Current Medications Acetaminophen (Tylenol 325mg Tab) 650 mg PO Q6 PRN PRN Reason: Pain, moderate (4-7) Acetaminophen/Butalbital/Caffeine (Fioricet) 1 tab PO Q8 PRN PRN Reason: headache Last Admin: 05/19/18 02:26 Dose: 1 tab Vancomycin HCl 1,000 mg/ (Sodium Chloride) 250 mls @ 166.6 mls/hr IVPB Q12H [facility]; Protocol Last Admin: 05/20/18 06:13 Dose: 166.6 mls/hr Cefepime HCl 1 gm/ Dextrose 50 mls @ 100 mls/hr IVPB Q8H [facility]; Protocol Last Admin: 05/20/18 09:53 Dose: 100 mls/hr Lisinopril (Zestril) 20 mg PO DAILY [facility] Last Admin: 05/20/18 09:53 Dose: 20 mg Oxycodone/Acetaminophen (Percocet 5/325 Mg Tab) 1 tab PO Q4H PRN PRN Reason: Pain, Mild (1-3) Stop: 05/22/18 08:56 Last Admin: 05/19/18 21:45 Dose: 1 tab Rosuvastatin Calcium (Crestor) 5 mg PO HS [facility] Last Admin: 05/19/18 21:42 Dose: 5 mg Topiramate (Topamax) 25 mg PO DAILY [facility] Last Admin: 05/20/18 09:53 Dose: 25 mg - Labs Labs: 05/20/18 04:42 05/20/18 04:42 - Constitutional Appears: Non-toxic - Head Exam Head Exam: absent: NORMOCEPHALIC - Eye Exam Eye Exam: Scleral icterus - ENT Exam ENT Exam: Mucous Membranes Dry - Neck Exam Neck Exam: absent: Lymphadenopathy - Respiratory Exam Respiratory Exam: Decreased Breath Sounds - Cardiovascular Exam Cardiovascular Exam: REGULAR RHYTHM - GI/Abdominal Exam GI & Abdominal Exam: Distended, Soft - Rectal Exam Rectal Exam: Deferred - Exam Exam: NORMAL INSPECTION - Extremities Exam Extremities Exam: absent: Pedal Edema - Back Exam Back Exam: absent: CVA tenderness (L), CVA tenderness (R) Assessment and Plan - Assessment and Plan (Free Text) Assessment: cont iv rx iawait cultures transfer to reg floor
[2018-05-20] MEDS: Oxycodone/Acetaminophen 5/325 mg Tab PO PRN (18:43)
[2018-05-21 00:13] VITALS: RESP 20
[2018-05-21 04:35] VITALS: O2SAT 96
[2018-05-21 08:02] VITALS: PULSE 96
[2018-05-21 08:24] VITALS: BP 133/77; TEMP 99
--- NOTE | 2018-05-21 11:33 | PN ---
DATE: 05/20/2018 SUBJECTIVE: The visit was done on 05/20/2018. He is postoperative day number two. No respiratory distress, and pain at the surgical site is well tolerated. PHYSICAL EXAMINATION: VITAL SIGNS: Blood pressure was 125/74, temperature 98.8, respiratory rate 20, and pulse 80. HEENT: Pupils equal, reactive to light. Normal-appearing mucosa of the conjunctivae, oropharyngeal, and nasal membrane mucosa. NECK: Supple. No JVD. No carotid bruit. No lymph node. No thyromegaly. CHEST AND LUNGS: Bilateral symmetrical expansion. Good air exchange. No rales, no rhonchi. CARDIOVASCULAR SYSTEM: PMI not localized. S1, S2. No additional sounds. ABDOMEN: Normoactive bowel sounds. No tenderness. No organomegaly. No masses. EXTREMITIES: No cyanosis, no clubbing, no edema. FINISHING ROOM OPERATOR: Alert, awake, oriented x2. No neurological deficit could be appreciated. ASSESSMENT: 1. Status post ventriculoperitoneal shunt for severe hydrocephalus. 2. Hypertension. 3. Hypercholesterolemia. PLAN: The patient will be moved out of intensive care unit and start physical therapy and the patient is stable and cleared by Neurosurgery. The patient will be discharged home on 05/21/2018. Edu Thompson MD
--- NOTE | 2018-05-21 12:41 | CP.PCM.PN ---
Subjective - Date & Time of Evaluation Date of Evaluation: 05/21/18 Time of Evaluation: 12:40 - Subjective Subjective: patient seen today , denies ay fever, chills, headache, blurred vision, dizziness, headache, weakness No overnight events reported by RN max. temp - 100.6 post op a febrile patient refused blood work and stated wants to go home and doesn't want any further work up Objective - Vital Signs/Intake and Output Vital Signs (last 24 hours): Temp Pulse Resp BP Pulse Ox 99.0 F 96 H 20 133/77 96 05/21/18 07:00 05/21/18 07:50 05/21/18 07:00 05/21/18 07:00 05/21/18 07:00 Intake and Output: 05/21/18 05/21/18 06:59 18:59 Intake Total 500 Output Total 450 Balance 50 - Medications Medications: Current Medications Acetaminophen (Tylenol 325mg Tab) 650 mg PO Q6 PRN PRN Reason: Pain, moderate (4-7) Last Admin: 05/21/18 06:09 Dose: 650 mg Acetaminophen/Butalbital/Caffeine (Fioricet) 1 tab PO Q8 PRN PRN Reason: headache Last Admin: 05/19/18 02:26 Dose: 1 tab Vancomycin HCl 1,000 mg/ (Sodium Chloride) 250 mls @ 166.6 mls/hr IVPB Q12H [facility]; Protocol Last Admin: 05/21/18 05:35 Dose: 166.6 mls/hr Cefepime HCl 1 gm/ Dextrose 50 mls @ 100 mls/hr IVPB Q8H [facility]; Protocol Last Admin: 05/21/18 10:30 Dose: 100 mls/hr Lisinopril (Zestril) 20 mg PO DAILY [facility] Last Admin: 05/21/18 10:24 Dose: 20 mg Oxycodone/Acetaminophen (Percocet 5/325 Mg Tab) 1 tab PO Q4H PRN PRN Reason: Pain, Mild (1-3) Stop: 05/22/18 08:56 Last Admin: 05/20/18 18:43 Dose: 1 tab Rosuvastatin Calcium (Crestor) 5 mg PO HS [facility] Last Admin: 05/20/18 21:25 Dose: 5 mg Topiramate (Topamax) 25 mg PO DAILY [facility] Last Admin: 05/21/18 10:25 Dose: 25 mg - Labs Labs: 05/20/18 04:42 05/20/18 04:42 Assessment and Plan - Assessment and Plan (Free Text) Assessment: A/P 52 yr old male transferred from [place] for TEST DESK TROUBLE LOCATOR shunt, s/p TEST DESK TROUBLE LOCATOR shunt revision by Dr. Ivory and patient cleared for discharge D/w Dr. Arguello , CSF cultures - (negative for 2 days ) can be discharged home with keflex x 5 days D/w Dr. Narayanan , recommends to do CT of head prior discharge and was done and result pending Dr. Narayanan seen patient today and made aware patient wants to go home and doesnt want to stay for [facility] CT report D/w Dr. Thompson cleared for discharge home today and f/u with Elliott Quinn office discharge plan discussed with patient and girl friend at bed side, who understands and agrees with plan patient instructed to f/u with [facility] Quinn office and Dr. Blaknenship office Patient instructed to call PMD or returns to ED if he develops any fever, chills, headache, dizziness and blurred vision , weakness
--- NOTE | 2018-05-21 13:18 | CT ---
Date of service: 05/21/2018 PROCEDURE: CT HEAD WITHOUT CONTRAST. HISTORY: s/p SCISSORS SHARPENER shunt COMPARISON: 02/28/2016 TECHNIQUE: Axial computed tomography images were obtained through the head/brain without intravenous contrast. Radiation dose: Total exam DLP = 1227.24 mGy-cm. This CT exam was performed using one or more of the following dose reduction techniques: Automated exposure control, adjustment of the mA and/or kV according to patient size, and/or use of iterative reconstruction technique. FINDINGS: HEMORRHAGE: No acute intracranial hemorrhage. BRAIN: No intracranial mass. No evidence of acute infarct. No atrophy. No chronic white matter ischemic change. VENTRICLES: Dilatation of the 3rd and lateral ventricles. Normal size 4th ventricle. 2 ventriculostomy catheters are noted. A previously evident right frontal ventriculostomy catheter is again seen entering through the frontal horn of the right lateral ventricle and traversing the midline. A new right parietal ventriculostomy catheter is seen entering through the atrium of the right lateral ventricle. Its tip lies adjacent to the posterior interventricular septum. CALVARIUM: Unremarkable. PARANASAL SINUSES: Unremarkable as visualized. No significant inflammatory changes. MASTOID AIR CELLS: Unremarkable as visualized. No inflammatory changes. OTHER FINDINGS: None. IMPRESSION: New right parietal ventriculostomy catheter. Stable appearance of right frontal ventriculostomy catheter. No change in extent of dilatation of the 3rd and lateral ventricles.
--- NOTE | 2018-05-23 10:46 | CON ---
DATE: 05/20/2018 Neurology consult called by Dr. Leonela Le. HISTORY OF PRESENT ILLNESS: This is a 51-year-old male with past medical history of hypertension, migraines, dyslipidemia, who was in [place] with a diagnosis of hydrocephalus and was transferred here yesterday for SEPARATOR TENDER shunt placement. The patient has a SEPARATOR TENDER shunt placed in 2002, sent to [facility] for revision of SEPARATOR TENDER shunt after he presented with dizziness and headache. Dr. Ivory performed the SEPARATOR TENDER shunt revision, and the patient never followed up. Last week, the patient continued to have recurrent ataxia and dizziness, presented to [facility], and was transferred to [facility] for SEPARATOR TENDER shunt revision. SEPARATOR TENDER shunt was done today. The patient was seen postop and was doing well. I examined him myself, and he was alert and oriented x3. No fevers, no dysarthria, no aphasia. No facial droop. No cranial nerve findings. He did, however, have a severe headache. SEPARATOR TENDER shunt was in place, and wound was normal. REVIEW OF SYSTEMS: As above, headache, nausea, and vomiting. There was malaise as well. He denies fever, chills, tingling, or visual blurriness. PAST MEDICAL HISTORY: Hydrocephalus, hypertension, and dyslipidemia. PAST SURGICAL HISTORY: Left leg surgery, , SEPARATOR TENDER shunt placement. FAMILY HISTORY: , has several children. SOCIAL HISTORY: No tobacco. No alcohol. He is not working currently. ALLERGIES: NO KNOWN DRUG ALLERGIES. PHYSICAL EXAMINATION: NEUROLOGIC: The patient is alert and oriented x3. Pupils equal, round, and reactive to light. Extraocular movements are intact. The patient has no facial asymmetry. Speech was clear, but slow. There was no aphasia or dysarthria. Gait was not tested, however, motor was strong 5/5. His neuro exam is normal as well. LABORATORY DATA: As follows: White count 7.6 , hemoglobin 13.9, hematocrit 42.9, and platelets 191. Sodium 133, potassium 4.2, BUN 23, creatinine 0.9, glucose 122, calcium 8.4. All else were normal. Influenza was negative for flu. CSF was normal when collected on 05/19/2018, Postop CAT scan is not available at this time. IMPRESSION: This is a 51 year-old male with ventriculoperitoneal shunt revision. He is in the intensive care unit currently and healing properly; however, he has a severe headache. PLAN: I would recommend him being watched overnight for 24 hours. Appreciated surgical intervention. At this time, there is no need for antiepileptic medication. Our team will follow. Please call with any questions. Elvin Molina MD MTDIvon
--- NOTE | 2018-05-23 20:33 | DS ---
The patient was discharged on 05/21/2018. REASON FOR ADMISSION: A 52-year-old male with history of severe hydrocephalus, was admitted to [facility] for planned revision of the NEUROLOGY TECH shunt by Dr. Ivory. COURSE OF HOSPITALIZATION: The patient was admitted to medical floor and after preparation and cardiology clearance, the patient underwent NEUROLOGY TECH shunt revision by Dr. Ivory. Postoperative course was uneventful and the patient was discharged in a stable condition to follow with his primary care physician, Dr. Gallagher. FINAL DIAGNOSES: Severe hydrocephalus, status post revision of the ventriculoperitoneal shunt, hypertension, hypercholesterolemia. [facility] MD Jay
== END 2018-05-21 13:35 | disposition home or self-care (01) | DRG 1 ==
LOC: C.6T 11:58 → C.9I 05-19 10:18 → C.6T 05-20 17:01
PROVIDERS: ADMIT Internal Medicine; ATTEND Internal Medicine
PROC: 0WWG0JZ Revision of Synthetic Substitute in Peritoneal Cavity, Open Approach (ICD-10-PCS; 2018-05-19)
PROC: 00W60JZ Revision of Synthetic Substitute in Cerebral Ventricle, Open Approach (ICD-10-PCS; principal; 2018-05-19 07:30)
DX: T85.01XA Breakdown (mechanical) of ventricular intracranial (communicating) shunt, initial encounter (principal); G91.9 Hydrocephalus, unspecified; J98.11 Atelectasis; Y75.2 Prosthetic and other implants, materials and neurological devices associated with adverse incidents; E78.00 Pure hypercholesterolemia, unspecified; E78.5 Hyperlipidemia, unspecified; I10 Essential (primary) hypertension; R50.82 Postprocedural fever; Z87.820 Personal history of traumatic brain injury; G43.909 Migraine, unspecified, not intractable, without status migrainosus

== ENCOUNTER 2018-07-04 11:40 | Outpatient (CLI) | payer MEDICAID | END 2018-07-04 11:41 | disposition home or self-care (01) | LOC: C.CTH 11:40 | DX: I62.00 Nontraumatic subdural hemorrhage, unspecified (principal) ==

== ENCOUNTER 2018-07-19 12:47 | Emergency (ER) | payer MEDICAID ==
[2018-07-19 13:08] VITALS: BMI 30.4
[2018-07-19 13:10] VITALS: O2SAT 94
[2018-07-19 13:11] VITALS: TEMP 98.4
[2018-07-19 14:20] LABS: BASO % 0.7 % (0.0-2.0); EOS # 0.1 K/uL (0.0-0.7); EOS % 1.3 % (0.0-4.0); HEMOGLOBIN 13.5 g/dL (12.0-18.0); LYMPH # 0.9 K/uL (1.0-4.3); LYMPH % 14.3 % (20.0-40.0); MEAN CELL VOLUME 91.5 fL (80.0-94.0); MEAN CORPUSCULAR HEMOGLOBIN 30.3 pg (27.0-31.0); MEAN CORPUSCULAR HGB CONC 33.1 g/dL (33.0-37.0); MEAN PLATELET VOLUME 9.3 fL (7.2-11.7); MONO # 0.5 K/uL (0.0-0.8); MONO % 8.8 % (0.0-10.0); NEUT # 4.5 K/uL (1.8-7.0); NEUT % 74.9 % (50.0-75.0); RBC 4.45 Mil/uL (4.40-5.90); RED CELL DISTRIBUTION WIDTH 14.8 % (11.5-14.5)
[2018-07-19 14:37] LABS: PROTHROMBIN TIME 10.8 SECONDS (9.7-12.2)
[2018-07-19 14:38] LABS: ALB/GLOB RATIO 1.4 (1.0-2.1); ALBUMIN 3.9 g/dL (3.5-5.0); ALT/SGPT 25 U/L (21-72); AST/SGOT 25 U/L (17-59); BLOOD UREA NITROGEN 21 mg/dL (9-20); CALCIUM 8.7 mg/dl (8.6-10.4); GFR NON-AFRICAN AMERICAN > 60
[2018-07-19 14:49] LABS: B-TYPE NATRIURETIC PEPTIDE 104 pg/mL (0-900); CK-MB 2.75 ng/mL (0.0-3.38)
--- NOTE | 2018-07-19 14:58 | C.PDOC ---
History Of Present Illness 53 y/o male w/PMhx of diabetes, HTN, hyperlipidemia, CUSTOMER GREETER Shunt, and CVA, brought to ER by ambulance for evaluation of bilateral leg edema and pain which has been present for the past 3 days. As per girlfriend, patient has been admitted previously for "total body fluids." Patient denies chest pain, SOB, palpitations, fever/chills, rashes, abdominal pain. Time Seen by Provider: 07/19/18 13:25 Chief Complaint (Nursing): Lower Extremity Problem/Injury History Per: Patient History/Exam Limitations: no limitations Onset/Duration Of Symptoms: Days Current Symptoms Are (Timing): Still Present Severity: Moderate Past Medical History Reviewed: Historical Data, Nursing Documentation, Vital Signs Vital Signs: Last Vital Signs Temp 98.4 F 07/19/18 13:11 Pulse 82 07/19/18 13:07 Resp 18 07/19/18 13:07 BP 132/95 H 07/19/18 13:07 Pulse Ox 94 L 07/19/18 13:07 - Medical History PMH: Arthritis, CVA, Diabetes, Gastritis, HTN, Hypercholesterolemia, Hyperlipidemia, Migraine, TIA (x2), Chronic Pain Surgical History: Hernia Repair - [facility] Procedures REVISION OF SYNTH SUB IN CEREB VENT, OPEN APPROACH (05/18/18) REVISION OF SYNTH SUB IN PERITON CAV, OPEN APPROACH (05/18/18) Family History: States: No Known Family Hx - Social History Hx Tobacco Use: No Hx Alcohol Use: No Hx Substance Use: No - Immunization History Hx Tetanus Toxoid Vaccination: Yes Hx Influenza Vaccination: Yes Hx Pneumococcal Vaccination: Yes Review Of Systems Constitutional: Negative for: Fever, Chills Cardiovascular: Negative for: Chest Pain, Palpitations Respiratory: Negative for: Cough, Shortness of Breath Gastrointestinal: Negative for: Nausea, Vomiting, Abdominal Pain, Diarrhea Musculoskeletal: Positive for: Other (bilateral leg edema and pain) Skin: Negative for: Rash Neurological: Negative for: Weakness, Numbness Physical Exam - Physical Exam Appears: Well, Non-toxic, No Acute Distress Skin: Normal Color, Warm, Dry, No Rash Head: Atraumatic, Normacephalic Eye(s): bilateral: Normal Inspection Oral Mucosa: Moist Neck: Supple Cardiovascular: Rhythm Regular Respiratory: Normal Breath Sounds, No Rales, No Rhonchi, No Wheezing Gastrointestinal/Abdominal: Normal Exam, Bowel Sounds, Soft, No Tenderness Extremity: Normal ROM, No Calf Tenderness, Capillary Refill (< 2 sec all digits ), No Deformity, Other (2+ pitting edema of bilateral legs) Pulses: Left Dorsalis Pedis: Normal, Right Dorsalis Pedis: Normal Neurological/Psych: Oriented x3, Normal Sensation Gait: Steady ED Course And Treatment - Laboratory Results Result Diagrams: 07/19/18 14:12 07/19/18 14:12 Lab Results: PT 10.8 SECONDS (9.7-12.2) 07/19/18 14:12 INR 1.0 07/19/18 14:12 APTT 31.0 SECONDS (21-34) 07/19/18 14:12 Troponin I < 0.0120 ng/mL (0.00-0.120) 07/19/18 14:12 NT-Pro-B Natriuret Pep 104 pg/mL (0-900) 07/19/18 14:12 Total Bilirubin 0.4 mg/dL (0.2-1.3) 07/19/18 14:12 AST 25 U/L (17-59) 07/19/18 14:12 ALT 25 U/L (21-72) 07/19/18 14:12 Alkaline Phosphatase 81 U/L (38-126) 07/19/18 14:12 Total Protein 6.7 g/dL (6.3-8.3) 07/19/18 14:12 Albumin 3.9 g/dL (3.5-5.0) 07/19/18 14:12 Globulin 2.8 gm/dL (2.2-3.9) 07/19/18 14:12 Albumin/Globulin Ratio 1.4 (1.0-2.1) 07/19/18 14:12 O2 Sat by Pulse Oximetry: 94 (RA) Pulse Ox Interpretation: Normal - Radiology CXR: Interpreted by Me, Viewed By Me CXR Interpretation: Yes: No Acute Disease. No: Infiltrates Progress Note: Blood work, CXR, venous dopplers ordered and reviewed. Patient given IV Lasix. Venous doppler neg for acute DVT. Patient has no dyspnea/chest pain, BNP negative and CXR neg for effusions. Reevaluation Time: 16:15 Reassessment Condition: Improved (Patien is currently resting comfortably, in no acute distress/pain. Patient/girlfriend instructed on taking higher dose of lasix for 7-10 days (60mg total). They were instructed to follow up with PMD in 1-2 days, and understand he should return to Ed if symptoms worsen.) - Physician Consult Information Physician Contacted: Yoly Gallagher Outcome Of Conversation: Discussed patient with his PMD, ok to discharge patient home at this time with follow up in the office. Disposition Counseled Patient/Family Regarding: Studies Performed, Diagnosis, Need For Followup, Rx Given - Disposition Referrals: Yoly Gallagher MD [Medical Doctor] - Disposition: HOME/ ROUTINE Disposition Time: 16:15 Condition: STABLE Additional Instructions: FOLLOW UP WITH YOUR DOCTOR IN 1-2 DAYS USE LASIX DAILY X 10 DAYS RETURN TO ER IF YOUR SYMPTOMS WORSEN Prescriptions: Furosemide [Lasix] 20 mg PO DAILY #10 tablet Instructions: Dependent Edema (DC) Forms: [employer] (Mozambican) Print Language: GABONESE - Clinical Impression Clinical Impression: Peripheral edema - Scribe Statement The provider has reviewed the documentation as recorded by the Edgaribnatalie Hendrix Provider Attestation: All medical record entries made by the Scribe were at my direction and personally dictated by me. I have reviewed the chart and agree that the record accurately reflects my personal performance of the history, physical exam, medical decision making, and the department course for this patient. I have also personally directed, reviewed, and agree with the discharge instructions and disposition.
--- NOTE | 2018-07-19 15:56 | RAD ---
Date of service: 07/19/2018 PROCEDURE: CHEST RADIOGRAPH, 1 VIEW HISTORY: SOB COMPARISON: 05/19/2018. FINDINGS: LUNGS: The lungs are well inflated and clear. PLEURA: No pneumothorax or pleural effusion. CARDIOVASCULAR: Evaluation of the cardiac silhouette is limited due to elevation of the left hemidiaphragm and poor inspiration. No aortic atherosclerotic calcifications present. OSSEOUS STRUCTURES: Within normal limits for the patient's age. VISUALIZED UPPER ABDOMEN: Normal. OTHER FINDINGS: There is chronic elevation of the left hemidiaphragm. A right-sided ventriculoperitoneal shunt catheter is identified. IMPRESSION: No acute findings. No significant interval change.
[2018-07-19 16:24] VITALS: BP 150/90; PULSE 72; RESP 18
--- NOTE | 2018-07-20 13:00 | VASCLAB ---
Date of service: 07/19/2018 PROCEDURE: Lower Extremity Venous Duplex Exam. HISTORY: B/L LEG EDEMA R/O DVT PRIORS: None. TECHNIQUE: Bilateral common femoral, femoral, popliteal and posterior tibial, peroneal and great saphenous veins were evaluated. Flow was assessed with color Doppler, compressibility, assessment of phasic flow and augmentation response. Report prepared by YESSICA Laughlin FINDINGS: RIGHT: 1. Common Femoral Vein: 1.1. Compressibility - Fully compressible: Thrombus - None : Flow - Phasic: Augmentation -Normal: Reflux - None. 2. Femoral Vein: 2.1. Compressibility - Fully compressible: Thrombus - None : Flow - Phasic: Augmentation -Normal: Reflux - None. 3. Popliteal Vein: 3.1. Compressibility - Fully compressible: Thrombus - None : Flow - Phasic: Augmentation -Normal: Reflux - None. 4. Posterior Tibial Vein: 5. Peroneal Vein: 6. Great Saphenous Vein: 6.1. Compressibility - Fully compressible: Thrombus - None: Flow - Phasic: Augmentation - Normal: Reflux - None. LEFT: 1. Common Femoral Vein: 1.1. Compressibility - Fully compressible: Thrombus - None: Flow - Phasic: Augmentation -Normal: Reflux - None. 2. Femoral Vein: 2.1. Compressibility - Fully compressible: Thrombus - None: Flow - Phasic: Augmentation -Normal: Reflux - None. 3. Popliteal Vein: 3.1. Compressibility - Fully compressible: Thrombus - None : Flow - Phasic: Augmentation -Normal: Reflux - None. 4. Posterior Tibial Vein: 5. Peroneal Vein: 6. Great Saphenous Vein: 6.1. Compressibility - Fully compressible: Thrombus - None: Flow - Phasic: Augmentation - Normal: Reflux - None. OTHER FINDINGS: Bilateral posterior tibial and peroneal veins were not visualized due to swelling. The remaining veins are compressible bilaterally. IMPRESSION: Right: No evidence of deep or superficial vein thrombosis of the right lower extremity. Normal valve function noted of the right side. Left: No evidence of deep or superficial vein thrombosis of the left lower extremity. Normal valve function noted of the left side.
== END 2018-07-19 16:31 | disposition home or self-care (01) ==
LOC: C.ER 12:47
DX: R60.0 Localized edema (principal)
CPT/HCPCS: 71045; 80053; 82550; 82553; 83880; 84484; 85025; 85610; 85730; 93970; 96374; 99285; J1940